=== PATIENT | female | born 1930 | race Caucasian/White ===

== ENCOUNTER 2017-10-24 11:05 | Inpatient (IN) ==
[2017-10-24] MEDS ORDERED: SALINE FLUSH 10ml SYRINGE IVF PRN (11:17)
--- NOTE | 2017-10-24 11:19 | Emergency Department Report ---
General Adult HPI - General Stated complaint: GEN Eval Time Seen by Provider: 10/24/17 11:16 Source: patient Mode of arrival: wheelchair Limitations: other (dementia) - History of Present Illness HPI narrative: 87-year-old female presents to the emergency department with a chief complaint of paranoia. This has been a gradually progressive condition over the past several weeks. Patient denies any pain or discomfort. She has no other complaints or associated symptoms. She was at her care facility when the symptoms began. Symptoms have been persistent in nature since onset. She does not note any exacerbating or remitting factors. She is accompanied by the emergency management system director from her facility who will provide history as the patient has dementia and is at baseline mental status. She denies homicidal/suicidal ideation or plan. No self injury or self-harm. - Related Data Home Medications Medication Instructions Recorded Confirmed Acetaminophen 325 - 650 mg PO Q6H PRN 10/24/17 10/24/17 Cholestyramine (with Sugar) 4 gm PO BID 10/24/17 10/24/17 [Questran Packet] Famotidine [Pepcid] 20 mg PO BID 10/24/17 10/24/17 Guaifenesin/Dm Oral Liq 5 ml PO Q4H PRN 10/24/17 10/24/17 [Robitussin Dm] Hydroxychloroquine Sulfate 400 mg PO WB 10/24/17 10/24/17 [Plaquenil] LORazepam [Ativan] 0.5 mg PO Q6H PRN 10/24/17 10/24/17 Levothyroxine Sodium 75 mg PO ACB 10/24/17 10/24/17 Meclizine [Antivert] 12.5 - 25 mg PO TID PRN 10/24/17 10/24/17 Memantine [Namenda] 10 mg PO BID 10/24/17 10/24/17 Ondansetron [Zofran Odt] 8 mg PO Q6H PRN 10/24/17 10/24/17 Triamcinolone Acetonide 1 applicatio TOP BID PRN 10/24/17 10/24/17 Ziprasidone HCl [Geodon] 20 mg PO BID 10/24/17 10/24/17 Allergies Allergy/AdvReac Type Severity Reaction Status Date / Time No Known Allergies Allergy Verified 10/24/17 11:33 Review of Systems Limitations: ROS unobtainable due to patient's medical condition Musculoskeletal: Denies: arthralgia PFSH Diarrhea, dizziness, hypothyroid, hyperlipidemia, hypocalcemia, dementia, depression, hypertension, GERD Surgical History: Denied by patient. Family History: Reviewed and Noncontributory. - Social History Smoking status: Never smoker Substance use type: does not use Alcohol intake frequency: does not drink Physical Exam - Limitations Limitations: no limitations - General General appearance: alert, in no apparent distress - Normal Exams: Head:: Normocephalic without trauma Eyes:: Pupils are PERRLA w/ EOMI, No scleral icterus, irritation, or foreign bodies noted ENMT:: No facial trauma, nasal exudates, pharyngeal erythema, or exudates are noted Dental: No fractured, loose, or missing teeth noted Neck:: Full range of motion, without adenopathy, JVD, bruits or thyromegaly Chest/Respirations:: Clear all reid, with good airflow, and symmetry bilaterally Cardiovascular:: Regular rate and rhythm, without murmur or gallop, Pulses 2+ all extremities, capillary refill, <2 seconds all extremities Abdomen:: Bowel sounds positive, soft, non-tender, non-distended, no hepatosplenomegaly, masses or bruits noted Lymphatic:: No lymphadenopathy, or lymphedema noted Musculoskeletal:: No tenderness, or deformity noted, good range of motion, all extremities Integumentary:: No rashes, hives, or bruising noted, hair and nails, without abnormality Neurological:: Patient is alert (Alert and oriented x 12 at baseline neuro status. No focal deficit. ) Psychiatric:: Patient exhibits, appropriate attention, emotion and affect Course Vital Signs Temperature 98.7 F 10/24/17 11:13 Pulse Rate 68 10/24/17 11:13 Respiratory Rate 18 10/24/17 11:13 Pulse Oximetry 94 10/24/17 11:13 Temperature 98 F 10/24/17 13:27 Pulse Rate 69 10/24/17 13:27 Respiratory Rate 18 10/24/17 13:27 Blood Pressure 160/72 H 10/24/17 13:27 Pulse Oximetry 96 10/24/17 13:27 Medical Decision Making - MDM Narrative Medical decision making narrative: Labs/imaging were discussed in detail with the patient and questions are answered. Patient is medically clear for further evaluation and treatment in a psychiatric facility. Patient was accepted degenerations by Dr. Ortega. Patient is in agreement with the current plan of management. No further orders from accepting physician is in agreement with the current plan of management. - Differential Diagnosis depression, anxiety, paranoia, metabolic disorder - Lab Data Result diagrams: 10/24/17 11:34 10/24/17 11:34 Lab Results 10/24/17 10/24/17 10/24/17 Range/Units 11:34 11:34 11:42 WBC 8.6 (4.5-11.0) T/MM3 RBC 3.68 L (4.00-5.20) M/MM3 Hgb 11.0 L (12-16) GM/DL Hct 35.4 L (36-46) % MCV 96.2 (80-100) UM3 MCH 29.9 (26-34) UUG MCHC 31.1 (31-37) GM/DL RDW Std Deviation 47.0 (36.9-50.2) FL Plt Count 306 (130-400) T/MM3 MPV 9.5 (9.4-12.4) UM3 Immature Gran % (Auto) 0.2 (0.0-0.5) % Neut % (Auto) 62.1 (33-66) % Lymph % (Auto) 24.0 (23-45) % [place] % (Auto) 8.4 (0-9.0) % Eos % (Auto) 4.5 H (0-4) % Baso % (Auto) 0.8 (0-2) % Neut # (Auto) 5.3 (1.8-7.7) T/MM3 Lymph # (Auto) 2.1 (1-4.8) T/MM3 [place] # (Auto) 0.7 (0-0.8) T/MM3 Eos # (Auto) 0.4 (0-0.5) T/MM3 Baso # (Auto) 0.1 (0-0.2) T/MM3 Abs Immat Gran (auto) 0.02 (0.00-0.03) T/MM3 Turbidity < 20 (0-20) Sodium 143 (134-144) MEQ/L Potassium 4.3 (3.6-5) MEQ/L Chloride 110 H (98-107) MEQ/L Carbon Dioxide 24 (22-30) MEQ/L Anion Gap 9 (5-15) MEQ/L BUN 20.0 H (7-17) MG/DL Creatinine 1.0 (0.7-1.2) MG/DL GFR Calculation 52 BUN/Creatinine Ratio 20 (6-26) RATIO Glucose 102 (65-110) MG/DL Calculated Osmolality 278 (261-280) MOSM/KG Calcium 9.0 (8.4-10.2) MG/DL Total Bilirubin 1.00 (0.20-1.30) MG/DL Icterus Index < 2 (0-7) AST 27 (14-36) U/L ALT 31 (9-52) U/L Alkaline Phosphatase 91 (38-126) U/L Troponin I < 0.012 (0-0.12) ng/ml Total Protein 7.5 (6.3-8.2) G/DL Albumin 4.4 (3.5-5.0) G/DL Globulin 3.1 (2.4-3.6) G/DL Albumin/Globulin Ratio 1.4 (1.1-2.2) RATIO Specimen Hemolysis < 15 (0-25) Ur Collection Type Urine, clean catch Urine Color Yellow (YELLOW) Urine Clarity Clear Urine pH 6.0 (5.0-8.0) Ur Specific [place] >=1.030 H (1.015-1.025) Urine Protein Negative (NEGATIVE) Urine Glucose (UA) Negative (NEGATIVE) Urine Ketones Negative (NEGATIVE) Urine Occult Blood Trace-lysed (NEGATIVE) Urine Nitrate Negative (NEGATIVE) Urine Bilirubin Negative (NEGATIVE) Urine Urobilinogen 0.2 (NORMAL) EU/DL Ur Leukocyte Esterase Negative (NEGATIVE) Urinalysis Comment Microscopic not ind. - Radiology Data Chest x-ray: No acute processes. - EKG Data EKG #1 EKG results narrative: Sinus Rhythm. First degree AV Block. 63 bpm. NO STEMI. Disposition Clinical Impression: Paranoia Disposition: 63 To [facility] Condition: Stable Time of Disposition: 12:15 (Admit. Dr. Ortega. ) - Seen By: physician
--- NOTE | 2017-10-24 11:41 | XRay Report ---
Indication: med. clearance PROCEDURE: XR chest 1V: Encounter: Initial Comparison: None FINDINGS: The lungs are clear. There is no abnormal airspace opacity, pleural effusion or pneumothorax identified. The heart size, pulmonary vasculature and mediastinum are within normal limits. IMPRESSION: No acute cardiopulmonary abnormality. .
--- OUTSIDE RECORDS SUMMARY | 2017-10-24 12:01 | External Medical Summary ---
:1930 Author Organization [employer] Care Team Providers Name Role Phone Jesus Suárez Provider Role Unavailable Allergies No Known Allergies Problems Problem Type Condition Code Onset Dates Condition Status Problem Hypothyroidism 244.9 Active Medications No Known Medications Results No Known Results Summary Purpose eClinical[employer] Submission
--- OUTSIDE RECORDS SUMMARY | 2017-10-24 12:01 | External Medical Summary ---
:1930 Author Organization [employer] Care Team Providers Name Role Phone Jesus Suárez Provider Role Unavailable Allergies, Adverse Reactions, Alerts Substance Reaction Event Type N.K.D.A. Info Not Available Non Drug Allergy Problems Problem Type Condition Code Onset Dates Condition Status Assessment Dementia F03.90 Active Assessment Paranoia F22 Active Problem Hypothyroidism 244.9 Active Medications Medication Code Code Instructions Start End Status Dosage System Date Date Meclizine HCl NDC 69357-9 25 MG Orally 1/2 tab 743-10 PRN Triamcinolone NDC 64142-7 0.1 % 1 application Acetonide 004-15 Externally PRN to affected area Pravastatin NDC 92266-5 40 mg as directed Sodium 771-10 Citracal + D NDC 26938-1 400 mg/500IU 1 tablet with 395-90 Orally Once a meals day Levothyroxine NDC 88421-7 50 mcg as directed Sodium 355-00 Procedures Procedure Coding System Code Date OFFICE VISITEST PT CPT-4 85388 April 24, 2016 Vital Signs Date/Time: April 24, 2016 Blood Pressure Systolic 140 mm Hg Height 62 in Weight 157.0 lbs BMI 28.71 Index Blood Pressure Diastolic 80 mm Hg Results No Known Results Summary Purpose eClinicalWorks Submission
--- OUTSIDE RECORDS SUMMARY | 2017-10-24 12:01 | External Medical Summary | Referral Summary ---
:1930 Author Organization [facility] Address [address] [place] [address] Care Team Providers Name Role Phone KaminiJesus Primary Care Physician Encounter VC Date(s): 01/22/16 - 01/22/16 [facility] [address] [place] [address] Discharge Disposition: 01-Home or Self Care Attending Physician: Raúl Mckeon MD Admitting Physician: Raúl Mckeon MD Vital Signs No data available for this section Problem List Condition Effective Dates Status Health Status Informant Acute pain(Confirmed) Resolved Allergies(Confirmed) Active Arthritis(Confirmed) Active At risk of pressure sore(Confirmed) Resolved Diverticulosis with Active perforation(Confirmed) Hyperlipidemia(Confirmed) Active Irritable bowel disease(Confirmed) Active Allergies, Adverse Reactions, Alerts No Known Medication Allergies Medications acetaminophen 650 mg, Oral, q6hr, as needed for fever or mild pain, 1-2 tabs (325mg- 650mg dose) as needed, 0 Refill(s) Start Date: 01/05/16 Status: OrderedCitracal + D 1 tabs, Oral, Daily, 0 Refill(s) Start Date: 01/05/16 Status: OrderedCommunication List obtained from [facility] Current medications document. , 0 Refill(s) Start Date: 01/05/16 Status: Orderedlevothyroxine 50 mcg (0.05 mg) oral tablet 50 mcg 1 tabs, Oral, Daily, 0 Refill(s) Start Date: 01/05/16 Status: OrderedLexapro 20 mg, Oral, Bedtime (once a day), 0 Refill(s) Start Date: 01/05/16 Status: Orderedlisinopril 10 mg oral tablet 10 mg 1 tabs, Oral, Daily, # 30 tabs, 2 Refill(s), Pharmacy: [id number], 1 tabs OralDaily Start Date: 01/08/16 Status: Orderedmeclizine 25 mg, Oral, TID, as needed for dizziness, 1/2 to 1 tab (12.5mg to 25mg dose) up to three times daily, 0 Refill(s) Start Date: 01/05/16 Status: OrderedPepcid 20 mg oral tablet 20 mg 1 tabs, Oral, BID, 0 Refill(s) Start Date: 01/08/16 Status: Orderedpravastatin 40 mg, Oral, Bedtime (once a day), 0 Refill(s) Start Date: 01/05/16 Status: Orderedtriamcinolone 0.1% topical cream 1 patricia, Topical, BID, as needed for skin irritation, 0 Refill(s) Start Date: 01/05/16 Status: Ordered Results No data available for this section Immunizations Vaccine Date Refusal Reason influenza virus vaccine, inactivated1 08/03/14 influenza virus vaccine, live 07/19/13 1Result Comment: [08/03/2014] see scanned document Procedures Procedure Date Related Diagnosis Body Site Amputation Toe (Right)1 07/08/14 R foot 2nd toe removed; hammer toe 2010 couple inches of colon removed 1979 Cholecystectomy Hysterectomy Tonsillectomy 1auto-populated from documented surgical case Social History Social History Type Response Smoking Status Never smoker Assessment and Plan No data available for this section
--- OUTSIDE RECORDS SUMMARY | 2017-10-24 12:01 | External Medical Summary ---
:1930 Author Organization [employer] Care Team Providers Name Role Phone Jesus Suárez Provider Role Unavailable Allergies, Adverse Reactions, Alerts Substance Reaction Event Type N.K.D.A. Info Not Available Non Drug Allergy Problems Problem Type Condition ICD-9 Code Onset Dates Condition Status Assessment Hypothyroidism 244.9 Active Assessment Hyperlipidemia 272.4 Active Problem Hypothyroidism 244.9 Active Medications Medication Code Code Instructions Start End Status Dosage System Date Date Escitalopram NDC 29086-6 20 mg Once a as directed Oxalate 851-01 day Pravastatin NDC 92211-7 40 mg as directed Sodium 771-10 Triamcinolone NDC 62243-9 0.1 % 1 application Acetonide 004-15 Externally PRN to affected area Levothyroxine NDC 74976-8 50 mcg as directed Sodium 355-00 Meclizine HCl NDC 59771-2 25 MG Orally 1/2 tab 743-10 PRN Citracal + D NDC 06515-5 400 mg/500IU 1 tablet with 395-90 Orally Once a meals day Procedures Procedure Coding System Code Date LIPID PROFILE CPT-4 69295 May 24, 2015 OFFICE VISITEST PT CPT-4 93253 May 24, 2015 TSH CPT-4 01324 May 24, 2015 Vital Signs Date/Time: May 24, 2015 Blood Pressure Systolic 124 mm Hg Height 62 in Weight 155.1 lbs BMI 28.37 Index Temperature 97.8 F Blood Pressure Diastolic 72 mm Hg Results No Known Results Summary Purpose eClinicalWorks Submission
--- OUTSIDE RECORDS SUMMARY | 2017-10-24 12:02 | External Medical Summary ---
:1930 Author Organization [employer] Care Team Providers Name Role Phone Jesus Suárez Provider Role Unavailable Allergies No Known Allergies Problems Problem Type Condition Code Onset Dates Condition Status Assessment Flu vaccine need V04.81 Active Problem Hypothyroidism 244.9 Active Medications No Known Medications Procedures Procedure Coding System Code Date Influenza (6 months to Adult) CPT-4 37211 Jul 04, 2015 Results No Known Results Immunizations Vaccine Administration Date Influenza (6 months to Adult) Jul 04, 2015 Summary Purpose eClinicalWorks Submission
--- OUTSIDE RECORDS SUMMARY | 2017-10-24 12:02 | External Medical Summary ---
:1930 Author Organization [employer] Care Team Providers Name Role Phone Jesus Suárez Provider Role Unavailable Allergies No Known Allergies Problems Problem Type Condition ICD-9 Code Onset Dates Condition Status Problem Hypothyroidism 244.9 Active Medications No Known Medications Results No Known Results Summary Purpose eClinicalWorks Submission
--- OUTSIDE RECORDS SUMMARY | 2017-10-24 12:02 | External Medical Summary | Referral Summary ---
:1930 Author Organization [facility] Address [address] [place] [address] Care Team Providers Name Role Phone Jesus Suárez Primary Care Physician Encounter VC Date(s): 01/05/16 - 01/08/16 [facility] [address] [place] [address] Discharge Diagnosis: Fall Discharge Diagnosis: Sacral fracture Discharge Diagnosis: Lumbar vertebral fracture Discharge Diagnosis: Vertigo Discharge Diagnosis: Intractable pain Discharge Disposition: 06-Home with Home Health Care Attending Physician: Femi Beckman DO Admitting Physician: Femi Beckman DO Vital Signs Most recent to oldest [Reference Range]: 1 Temperature Oral [35.8-37.3 degC] 36.5 degC (01/08/16 11:00 AM) Temperature Temporal Artery [36.3-37.8 degC] 36.7 degC (01/06/16 3:00 AM) Peripheral Pulse Rate [60-100 bpm] 74 bpm (01/08/16 6:01 AM) Heart Rate Monitored [60-100 bpm] 67 bpm (01/08/16 11:00 AM) Respiratory Rate [14-20 br/min] 18 br/min (01/08/16 11:00 AM) Blood Pressure [90-140/60-90 mmHg] 136/80 mmHg (01/08/16 11:52 AM) Mean Arterial Pressure, Cuff 85 mmHg (01/05/16 6:30 AM) SpO2 94 % (01/08/16 11:00 AM) Problem List Condition Effective Dates Status Health [...] Date: 01/05/16 Status: OrderedCommunication List obtained from [facility] Current medications document. , 0 Refill(s) Start Date: 01/05/16 Status: Orderedlevothyroxine 50 mcg (0.05 mg) oral tablet 50 mcg 1 tabs, Oral, Daily, 0 Refill(s) Start Date: 01/05/16 Status: OrderedLexapro 20 mg, Oral, Bedtime (once a day), 0 Refill(s) Start Date: 01/05/16 Status: Orderedlisinopril 10 mg oral tablet 10 mg 1 tabs, Oral, Daily, # 30 tabs, 2 Refill(s), Pharmacy: [id number], 1 tabs OralDaily Start Date: 01/08/16 Status: [...] Refill(s) Start Date: 01/05/16 Status: Ordered Results Hematology Most recent to oldest [Reference Range]: 1 WBC [4.8-10.8 10*3/uL] 9.4 10*3/uL (01/06/16 5:43 AM) RBC [4.00-5.20] 3.60 *LOW* (01/06/16 5:43 AM) Hgb [12.0-16.0 gm/dL] 10.9 gm/dL *LOW* (01/06/16 5:43 AM) Hct [37.0-47.0 %] 33.6 % *LOW* (01/06/16 5:43 AM) MCV [82.0-99.0 fL] 93.3 fL (01/06/16 5:43 AM) MCH [27.0-32.0 pg] 30.3 pg (01/06/16 5:43 AM) MCHC [32.0-36.0 gm/dL] 32.4 gm/dL (01/06/16 5:43 AM) RDW [11.5-14.5 %] 13.8 % (01/06/16 5:43 AM) Platelet [150-400 10*3/uL] 269 10*3/uL (01/06/16 5:43 AM) MPV [9.4-12.4 fL] 9.6 fL (01/06/16 5:43 AM) Immature Granulocytes [0.0-1.0 %] 0.4 % (01/06/16 5:43 AM) Neutrophils [51-75 %] 66 % (01/06/16 5:43 AM) Lymphocytes [20-46 %] 21 % (01/06/16 5:43 AM) Monocytes [4-11 %] 10 % (01/06/16 5:43 AM) Eosinophils [0-4 %] 2 % (01/06/16 5:43 AM) Basophils [0-2 %] 0 % (01/06/16 5:43 AM) Neutro Absolute [1.90-7.00 10*3] 6.23 10*3 (01/06/16 5:43 AM) Lymph Absolute [0.80-3.30 10*3] 1.98 10*3 (01/06/16 5:43 AM) Cache Absolute [0.30-1.00 10*3] 0.91 10*3 (01/06/16 5:43 AM) Eos Absolute [0.00-0.50 10*3] 0.19 10*3 (01/06/16 5:43 AM) Baso Absolute [0.00-0.20 10*3] 0.04 10*3 (01/06/16 5:43 AM) Coagulation Most recent to oldest [Reference Range]: 1 INR [0.9-1.2] 0.9 (01/05/16 1:19 PM) PTT [25.0-35.0 seconds] 28.8 seconds (01/05/16 1:19 PM) Chemistry Most recent to oldest [Reference Range]: 1 Sodium Lvl [136-144 mEq/L] 138 mEq/L (01/06/16 5:43 AM) Potassium Lvl [3.6-5.1 mEq/L] 4.0 mEq/L (01/06/16 5:43 AM) Chloride [99-109 mEq/L] 106 mEq/L (01/06/16 5:43 AM) CO2 [22-32 mEq/L] 26 mEq/L (01/06/16 5:43 AM) AGAP [3-20] 6 (01/06/16 5:43 AM) BUN [4-20 mg/dL] 17 mg/dL (01/06/16 5:43 AM) Glucose Lvl [70-100 mg/dL] 114 mg/dL *HI* (01/06/16 5:43 AM) Creatinine Lvl [0.44-1.03 mg/dL] 0.76 mg/dL (01/06/16 5:43 AM) eGFR [>60] >60 1 (01/06/16 5:43 AM) Calcium Lvl [8.6-10.0 mg/dL] 8.4 mg/dL *LOW* (01/06/16 5:43 AM) Albumin Lvl [3.5-4.8 gm/dL] 3.5 gm/dL (01/06/16 5:43 AM) Total Protein [6.1-7.9 gm/dL] 6.4 gm/dL (01/06/16 5:43 AM) Globulin [1.9-4.3 gm/dL] 2.9 gm/dL (01/06/16 5:43 AM) ALT [14-54 U/L] 18 U/L (01/06/16 5:43 AM) AST [15-41 U/L] 29 U/L (01/06/16 5:43 AM) Alk Phos [26-104 U/L] 75 U/L (01/06/16 5:43 AM) Bili Total [0.2-1.2 mg/dL] 1.6 mg/dL 2 *HI* (01/06/16 5:43 AM) Magnesium Lvl [1.8-2.5 mg/dL] 2.1 mg/dL (01/06/16 5:43 AM) 1Result Comment: Multiply eGFR results by 1.21 for race.2Result Comment: Naproxen, specifically the metabolite O-desmethylnaproxen, may cause spurious elevation in Total Bilirubin levels.Urinalysis Most recent to oldest [Reference Range]: 1 UA Color Lt Yellow (01/05/16 8:14 PM) UA Appear Clear (01/05/16 8:14 PM) UA pH [5.0-8.0] 6.5 (01/05/16 8:14 PM) UA Leuk Est [Negative] Negative (01/05/16 8:14 PM) UA Nitrite [Negative] Negative (01/05/16 8:14 PM) UA Protein [Negative] Negative (01/05/16 8:14 PM) UA Glucose [Negative] Negative (01/05/16 8:14 PM) UA Ketones [Negative] Negative (01/05/16 8:14 PM) UA Urobilinogen [<1.0] Negative (01/05/16 8:14 PM) UA Bili [Negative] Negative (01/05/16 8:14 PM) UA Blood [Negative] Trace *ABN* (01/05/16 8:14 PM) UA Spec Grav [1.003-1.030] 1.019 (01/05/16 8:14 PM) Type Clean Catch (01/05/16 8:14 PM) UA WBC [0-4] 0-2 (01/05/16 6:27 AM) UA RBC [0-2] 0-2 (01/05/16 8:14 PM) Epithelial Cells 0-2 (01/05/16 8:14 PM) Crystals Amorphous (01/05/16 8:14 PM) UA Mucous Present (01/05/16 8:14 PM) Immunizations Vaccine Date Refusal Reason influenza virus vaccine, inactivated1 08/03/14 influenza virus vaccine, live 07/19/13 1Result Comment: [08/03/2014] see scanned document Procedures Procedure Date Related Diagnosis Body Site Percutaneous vertebral augmentation, including 01/05/16 cavity creation (fracture reduction and bone biopsy included when performed) using mechanical device (eg, kyphoplasty), 1 vertebral body, unilateral or bilateral cannulation, inclusive of all imaging guidance Percutaneous vertebral augmentation, including 01/05/16 cavity creation (fracture reduction and bone biopsy included when performed) using mechanical device (eg, kyphoplasty), 1 vertebral body, unilateral or bilateral cannulation, inclusive of all imaging guidance Percutaneous vertebral augmentation, including 01/05/16 cavity creation (fracture reduction and bone biopsy included when performed) using mechanical device (eg, kyphoplasty), 1 vertebral body, unilateral or bilateral cannulation, inclusive of all imaging guidance Percutaneous vertebral augmentation, including 01/05/16 cavity creation (fracture reduction and bone biopsy included when performed) using mechanical device (eg, kyphoplasty), 1 vertebral body, unilateral or bilateral cannulation, inclusive of all imaging guidance Amputation Toe (Right)1 07/08/14 R foot 2nd toe removed; hammer toe 2010 couple inches of colon removed 1979 Cholecystectomy Hysterectomy Tonsillectomy 1auto-populated from documented surgical case Social History Social History Type Response Smoking Status Never smoker Assessment and Plan No data available for this section
--- OUTSIDE RECORDS SUMMARY | 2017-10-24 12:02 | External Medical Summary | Referral Summary ---
:1930 Author Organization [facility] Address [address] [place] [address] Care Team Providers Name Role Phone Jesus Suárez Primary Care Physician Encounter VC Date(s): 01/25/16 - 01/25/16 [facility] [address] [place] [address] [place] Discharge Diagnosis: Medication side effect Discharge Diagnosis: Gastroenteritis Discharge Disposition: 01-Home or Self Care Attending Physician: Ochoa Marie MD Admitting Physician: Ochoa Marie MD Vital Signs Most recent to oldest [Reference Range]: 1 Temperature Oral [35.8-37.3 degC] 36.6 degC (01/25/16 3:41 PM) Peripheral Pulse Rate [60-100 bpm] 64 bpm (01/25/16 5:45 PM) Respiratory Rate [14-20 br/min] 18 br/min (01/25/16 5:45 PM) Blood Pressure [90-140/60-90 mmHg] 156/74 mmHg *HI* (01/25/16 5:45 PM) SpO2 97 % (01/25/16 5:45 PM) Problem List Condition Effective Dates Status Health Status Informant Acute pain(Confirmed) Resolved Allergies(Confirmed) Active Arthritis(Confirmed) Active At risk of pressure sore(Confirmed) Resolved Dementia(Confirmed) Active patient Diverticulosis with Active perforation(Confirmed) Hyperlipidemia(Confirmed) Active Irritable bowel disease(Confirmed) Active Allergies, Adverse Reactions, Alerts No Known Medication Allergies Medications acetaminophen 650 mg, Oral, q6hr, as needed for fever or mild pain, 1-2 tabs (325mg- 650mg dose) as needed, 0 Refill(s) Start Date: 01/05/16 Status: OrderedAricept Oral, Bedtime (once a day), 0 Refill(s) Start Date: 01/25/16 Status: OrderedCitracal + D 1 tabs, Oral, Daily, 0 Refill(s) Start Date: 01/05/16 Status: OrderedCommunication List obtained from [facility] Current medications document. , 0 Refill(s) Start Date: 01/05/16 Status: Orderedlevothyroxine 50 mcg (0.05 mg) oral tablet 50 mcg 1 tabs, Oral, Daily, 0 Refill(s) Start Date: 01/05/16 Status: Orderedlisinopril 10 mg oral tablet 10 mg 1 tabs, Oral, Daily, # 30 tabs, 2 Refill(s), Pharmacy: [facility] [id number], 1 tabs OralDaily Start Date: 01/08/16 Status: [...] oldest [Reference Range]: 1 WBC [4.8-10.8 10*3/uL] 10.1 10*3/uL (01/25/16 3:55 PM) RBC [4.00-5.20] 4.17 (01/25/16 3:55 PM) Hgb [12.0-16.0 gm/dL] 12.7 gm/dL (01/25/16 3:55 PM) Hct [37.0-47.0 %] 38.1 % (01/25/16 3:55 PM) MCV [82.0-99.0 fL] 91.4 fL (01/25/16 3:55 PM) MCH [27.0-32.0 pg] 30.5 pg (01/25/16 3:55 PM) MCHC [32.0-36.0 gm/dL] 33.3 gm/dL (01/25/16 3:55 PM) RDW [11.5-14.5 %] 13.5 % (01/25/16 3:55 PM) Platelet [150-400 10*3/uL] 402 10*3/uL *HI* (01/25/16 3:55 PM) MPV [9.4-12.4 fL] 9.5 fL (01/25/16 3:55 PM) Chemistry Most recent to oldest [Reference Range]: 1 Sodium Lvl [136-144 mEq/L] 137 mEq/L (01/25/16 3:56 PM) Potassium Lvl [3.6-5.1 mEq/L] 4.1 mEq/L (01/25/16 3:56 PM) Chloride [99-109 mEq/L] 106 mEq/L (01/25/16 3:56 PM) CO2 [22-32 mEq/L] 24 mEq/L (01/25/16 3:56 PM) AGAP [3-20] 7 (01/25/16 3:56 PM) BUN [4-20 mg/dL] 21 mg/dL *HI* (01/25/16 3:56 PM) Glucose Lvl [70-100 mg/dL] 103 mg/dL *HI* (01/25/16 3:56 PM) Creatinine Lvl [0.44-1.03 mg/dL] 0.86 mg/dL (01/25/16 3:56 PM) eGFR [>60] >60 1 (01/25/16 3:56 PM) Calcium Lvl [8.6-10.0 mg/dL] 9.0 mg/dL (01/25/16 3:56 PM) Albumin Lvl [3.5-4.8 gm/dL] 4.3 gm/dL (01/25/16 3:56 PM) Total Protein [6.1-7.9 gm/dL] 7.6 gm/dL (01/25/16 3:56 PM) Globulin [1.9-4.3 gm/dL] 3.3 gm/dL (01/25/16 3:56 PM) ALT [14-54 U/L] 18 U/L (01/25/16 3:56 PM) AST [15-41 U/L] 27 U/L (01/25/16 3:56 PM) Alk Phos [26-104 U/L] 127 U/L *HI* (01/25/16 3:56 PM) Bili Total [0.2-1.2 mg/dL] 0.8 mg/dL 2 (01/25/16 3:56 PM) Creatinine Venous [0.4-1.0 mg/dL] 0.8 mg/dL (01/25/16 4:04 PM) 1Result Comment: Multiply eGFR results by 1.21 for race.2Result Comment: Naproxen, specifically the metabolite O-desmethylnaproxen, may cause spurious elevation in Total Bilirubin levels.Urinalysis Most recent to oldest [Reference Range]: 1 UA Color Yellow (01/25/16 3:55 PM) UA Appear Clear (01/25/16 3:55 PM) UA pH [5.0-8.0] 5.0 (01/25/16 3:55 PM) UA Leuk Est [Negative] Pos 1+ *ABN* (01/25/16 3:55 PM) UA Nitrite [Negative] Negative (01/25/16 3:55 PM) UA Protein [Negative] Negative (01/25/16 3:55 PM) UA Glucose [Negative] Negative (01/25/16 3:55 PM) UA Ketones [Negative] Negative (01/25/16 3:55 PM) UA Urobilinogen [<1.0] Negative (01/25/16 3:55 PM) UA Bili [Negative] Negative (01/25/16 3:55 PM) UA Blood [Negative] Trace *ABN* (01/25/16 3:55 PM) UA Spec Grav [1.003-1.030] 1.026 (01/25/16 3:55 PM) Type Clean Catch (01/25/16 3:55 PM) UA WBC [0-4] 5-10 *ABN* (01/25/16 3:55 PM) UA RBC [0-2] 0-2 (01/25/16 3:55 PM) Epithelial Cells 2-5 (01/25/16 3:55 PM) UA Bacteria Occasional *ABN* (01/25/16 3:55 PM) UA Mucous Present (01/25/16 3:55 PM) Immunizations Vaccine Date Refusal Reason influenza [...]
--- OUTSIDE RECORDS SUMMARY | 2017-10-24 12:02 | External Medical Summary ---
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 939777680 recurrent major depressive disorder Problem Vascular dementia F01.50 Active 970847708 without behavioral disturbance Problem Irritable bowel K58.0 Active 288469972 syndrome with diarrhea Problem Loss of height R29.890 Active 14282457 Problem Long-term use of Z79.899 Active 135634041 high-risk medication Problem Essential I10 Active 83828348 hypertension Problem Diarrhea due to drug K52.1 Active 793424034 Problem Adverse effect of T46.4X5A Active 837099540 angiotensin-converti ng-enzyme inhibitors, initial encounter Problem Cough R05 Active 580167287 Problem 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 Problem Gastroesophageal K21.9 Active 995305559 reflux disease without esophagitis Problem Dermatitis L30.9 Active 48929009 Problem Dementia in other F02.80 Active 15619910 diseases classified elsewhere without behavioral disturbance Problem Functional diarrhea K59.1 Active 02806914 Problem Acquired E03.9 Active 544525589 hypothyroidism Problem Generalized anxiety F41.1 Active 07046315 disorder ALLERGIES No Information SOCIAL HISTORY Never Assessed PLAN OF CARE VITAL SIGNS MEDICATIONS Unknown Medications RESULTS No Results PROCEDURES No Known procedures IMMUNIZATIONS No Known Immunizations MEDICAL (GENERAL) HISTORY Type Description Date Medical History essential hypertension Medical History senile dementia Medical History IBS with diarrhea Medical History major depressive disorder Medical History generalized anxiety disorder Medical History GERD Medical History acquired hypothyroidism
--- OUTSIDE RECORDS SUMMARY | 2017-10-24 12:02 | External Medical Summary ---
:1930 Demographics Phone Unavailable Preferred Language Unknown Marital Status Unknown Oriental Orthodox Affiliation Unknown Race Unknown Ethnic Group Unknown Author Organization [facility] Spec Address [address] [place] [address] Care Team Providers Name Role Phone Dago Scott Unavailable Unavailable PROBLEMS Type Condition ICD9-CM [id number] Onset Condition SNOMED Code Code Code Dates Status Problem Functional diarrhea K59.1 Active 48136549 Problem Moderate episode of F33.1 Active 507693934 recurrent major depressive disorder Problem Generalized anxiety F41.1 Active 70605026 disorder Problem Adverse effect of T46.4X5A Active 301822590 angiotensin-converting- enzyme inhibitors, initial encounter Problem Cough R05 Active 530048078 Problem Vascular dementia F01.50 Active 042853847 without behavioral disturbance Problem Irritable bowel K58.0 Active 379345486 syndrome with diarrhea Problem Essential hypertension I10 Active 31270644 Problem Diarrhea due to drug K52.1 Active 616754741 Assessment Hypercholesterolemia E78.00 13 Jan, Active 73155972 2017 Problem Dementia in other F02.80 Active 14260501 diseases classified elsewhere without behavioral disturbance Problem Acquired hypothyroidism E03.9 Active 623293997 Assessment Adverse effect of T46.4X5A Jan, Active 768561455 angiotensin-converting- 2017 enzyme inhibitors, initial encounter Problem Gastroesophageal reflux K21.9 Active 171801581 disease without esophagitis Problem Alzheimers disease with G30.1 Active 44487065 late onset Problem Dermatitis L30.9 Active 78139521 ALLERGIES Substance Reaction Event Type Date Status N.K.D.A. Unknown Non Drug Allergy Jan, Unknown SOCIAL HISTORY No smoking Hx information available PLAN OF CARE VITAL SIGNS MEDICATIONS Medication Instructions Dosage Frequency Start End Duration Status Date Date Lexapro 20 mg orally once a 1 tab(s) 24h Active day hydroxychloroquine orally once a 1 tab(s) 24h Active 200 mg day Namenda 10 mg orally 2 times 1 tab(s) 12h Active a day triamcinolone topical applied 1 patricia 8h Active 0.1% topically 3 times a day famotidine 20 mg orally 2 times 1 tab(s) 12h Active a day Dicyclomide Active Hydrochloride (obsolete), 100 g acetaminophen 325 mg orally every 4 2 tab(s) 4h Active hours levothyroxine 75 mcg orally once a 1 tab(s) 24h Active (0.075 mg) day pravastatin 20 mg orally once a 1 tab(s) Active day (at bedtime) RESULTS No Results PROCEDURES Procedure Date Ordered Related Diagnosis Body Site Subseq [facility] January 16, 2017 IMMUNIZATIONS No Known Immunizations
--- OUTSIDE RECORDS SUMMARY | 2017-10-24 12:02 | External Medical Summary ---
:1930 Author Organization [facility] Address [address] [place] [address] Care Team Providers Name Role Phone February, Unavailable Unavailable PROBLEMS Type Condition ICD9-CM Code [id number] Code Onset Condition SNOMED Code Dates Status Problem Hypothyroidism 244.9 Active 70343910 ALLERGIES Unknown Allergies SOCIAL HISTORY No smoking Hx information available PLAN OF CARE VITAL SIGNS MEDICATIONS Unknown Medications RESULTS No Results PROCEDURES No Known procedures IMMUNIZATIONS No Known Immunizations
--- OUTSIDE RECORDS SUMMARY | 2017-10-24 12:02 | External Medical Summary ---
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 550545368 recurrent major depressive disorder Problem Vascular dementia F01.50 Active 628182797 without behavioral disturbance Problem Irritable bowel K58.0 Active 067433969 syndrome with diarrhea Problem Loss of height R29.890 Active 70397049 Problem Long-term use of Z79.899 Active 939135708 high-risk medication Problem Essential I10 Active 85317133 hypertension Problem Diarrhea due to drug K52.1 Active 837668315 Problem Adverse effect of T46.4X5A Active 964657798 angiotensin-converti ng-enzyme inhibitors, initial encounter Problem Cough R05 Active 554280464 Problem 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
--- OUTSIDE RECORDS SUMMARY | 2017-10-24 12:02 | External Medical Summary ---
:1930 Author Organization [facility] Spec Address [address] [place] [address] Care Team Providers Name Role Phone Dago Scott Unavailable Unavailable PROBLEMS Type Condition ICD9-CM [id number] Onset Condition SNOMED Code Code Code Dates Status Problem Moderate episode of F33.1 Active 018989604 recurrent major depressive disorder Problem Vascular dementia F01.50 Active 292688531 without behavioral disturbance Problem Irritable bowel K58.0 Active 505550746 syndrome with diarrhea Problem Acute cystitis N30.00 Active 75864659 without hematuria Problem Seborrheic keratosis L82.1 Active 559011688 Problem Essential I10 Active 60895075 hypertension Problem Diarrhea due to drug K52.1 Active 247074693 Problem Adverse effect of T46.4X5A Active 659089080 angiotensin-converti ng-enzyme inhibitors, initial encounter Problem Cough R05 Active 492201623 Problem 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 03186167 with late onset Problem Gastroesophageal K21.9 Active 602474681 reflux disease without esophagitis Problem Dermatitis L30.9 Active 01512971 Problem Dementia in other F02.80 Active 51226565 diseases classified elsewhere without behavioral disturbance Problem Functional diarrhea K59.1 Active 41465808 Problem Acquired E03.9 Active 528878951 hypothyroidism Problem Generalized anxiety F41.1 Active 43990607 disorder ALLERGIES No Known Allergies SOCIAL HISTORY Never Assessed PLAN OF CARE VITAL SIGNS Temperature 97.5 degrees Fahrenheit 2017-05-15 Weight 160.4 lbs 2017-05-15 Height 60 in 2017-05-15 BMI 31.32 kg/m2 2017-05-15 Heart Rate 16 /min 2017-05-15 Oximetry 95 2017-05-15 Blood pressure systolic 129 mm Hg 2017-05-15 Blood pressure diastolic 69 mm Hg 2017-05-15 MEDICATIONS Medication Instructions Dosage Frequency Start End Duration Status Date Date hydroxychloroquine orally once a 1 tab(s) 24h Active 200 mg day Namenda 10 mg orally 2 times 1 tab(s) 12h Active a day Lexapro 20 mg orally once a 1 tab(s) 24h Active day acetaminophen 325 mg orally every 4 2 tab(s) 4h Active hours famotidine 20 mg orally 2 times 1 tab(s) 12h Active a day levothyroxine 75 mcg orally once a 1 tab(s) 24h Active (0.075 mg) day Dicyclomide Active Hydrochloride (obsolete) pravastatin 20 mg orally once a 1 tab(s) Active day (at bedtime) triamcinolone topical applied 1 patricia 8h Active 0.1% topically 3 times a day RESULTS No Results PROCEDURES No Known procedures IMMUNIZATIONS No Known Immunizations MEDICAL (GENERAL) HISTORY Type Description Date Medical History essential hypertension Medical History senile dementia Medical History IBS with diarrhea Medical History major depressive disorder Medical History generalized anxiety disorder Medical History GERD Medical History acquired hypothyroidism
--- OUTSIDE RECORDS SUMMARY | 2017-10-24 12:02 | External Medical Summary ---
:1930 Demographics Phone Unavailable Preferred Language Unknown Marital Status Unknown Sabianist Affiliation Unknown Race Unknown Ethnic Group Unknown Author Organization [facility] Spec Address [address] [place] [address] Care Team Providers Name Role Phone Dago Scott Unavailable Unavailable PROBLEMS Type Condition ICD9-CM [id number] Onset Condition SNOMED Code Code Code Dates Status Problem Functional diarrhea K59.1 Active 20029338 Problem Moderate episode of F33.1 Active 733860988 recurrent major depressive disorder Problem Generalized anxiety F41.1 Active 20908195 disorder Problem Adverse effect of T46.4X5A Active 216034674 angiotensin-converti ng-enzyme inhibitors, initial encounter Problem Cough R05 Active 715460538 Problem Vascular dementia F01.50 Active 079720067 without behavioral disturbance Problem Irritable bowel K58.0 Active 968160825 syndrome with diarrhea Problem Essential I10 Active 51465767 hypertension Problem Diarrhea due to drug K52.1 Active 915314898 Problem Dementia in other F02.80 Active 89347556 diseases classified elsewhere without behavioral disturbance Problem Acquired E03.9 Active 182213788 hypothyroidism Assessment Adverse effect of T46.4X5A 30 Dec, Active 993885989 angiotensin-converti 2017 ng-enzyme inhibitors, initial encounter Problem Gastroesophageal K21.9 Active 573947730 reflux disease without esophagitis 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 January 02, 2017 IMMUNIZATIONS No Known Immunizations
--- OUTSIDE RECORDS SUMMARY | 2017-10-24 12:02 | External Medical Summary ---
:1930 Demographics Phone Unavailable Preferred Language Unknown Marital Status Unknown Hinduism Affiliation Unknown Race Unknown Ethnic Group Unknown Author Organization [facility] Spec Address [address] [place] [address] Care Team Providers Name Role Phone Dago Scott Unavailable Unavailable PROBLEMS Type Condition ICD9-CM [id number] Onset Condition SNOMED Code Code Code Dates Status Problem Dementia in other F02.80 Active 63120817 diseases classified elsewhere without behavioral disturbance Problem Gastroesophageal reflux K21.9 Active 349545315 disease without esophagitis Problem Acquired hypothyroidism E03.9 Active 929314790 Assessment Essential hypertension I10 Dec, Active 79111016 2017 Assessment Hypercholesterolemia E78.00 Dec, Active 88670584 2017 Assessment Vascular dementia F01.50 Dec, Active 194401881 without behavioral 2017 disturbance Problem Alzheimers disease with G30.1 Active 06322614 late onset Problem Vascular dementia F01.50 Active 044098468 without behavioral disturbance Problem Irritable bowel K58.0 Active 550422398 syndrome with diarrhea Problem Functional diarrhea K59.1 Active 16939318 Problem Dermatitis L30.9 Active 69141015 Problem Moderate episode of F33.1 Active 601485613 recurrent major depressive disorder Problem Generalized anxiety F41.1 Active 44420544 disorder ALLERGIES Substance Reaction Event Type Date Status N.K.D.A. Unknown Non Drug Allergy Dec, Unknown SOCIAL HISTORY No smoking Hx information available PLAN OF CARE VITAL SIGNS MEDICATIONS Medication Instructions Dosage Frequency Start End Duration Status Date Date Dicyclomide Active Hydrochloride (obsolete), 100 g levothyroxine 75 mcg orally once a 1 tab(s) 24h Active (0.075 mg) day pravastatin 20 mg orally once a 1 tab(s) Active day (at bedtime) triamcinolone topical applied 1 patricia 8h Active 0.1% topically 3 times a day Namenda 10 mg orally 2 times 1 tab(s) 12h Active a day lisinopril 10 mg orally once a 1 tab(s) 24h Active day Lexapro 20 mg orally once a 1 tab(s) 24h Active day hydroxychloroquine orally once a 1 tab(s) 24h Active 200 mg day acetaminophen 325 mg orally every 4 2 tab(s) 4h Active hours famotidine 20 mg orally 2 times 1 tab(s) 12h Active a day RESULTS No Results PROCEDURES Procedure Date Ordered Related Diagnosis Body Site SNF Initial Level 2 December 26, 2016 IMMUNIZATIONS No Known Immunizations
--- OUTSIDE RECORDS SUMMARY | 2017-10-24 12:02 | External Medical Summary ---
:1930 Author Organization [employer] Care Team Providers Name Role Phone Jesus Suárez Provider Role Unavailable Allergies No Known Allergies Problems Problem Type Condition Code Onset Dates Condition Status Problem Hypothyroidism 244.9 Active Medications Medication Code System Code Instructions Start Date End Date Status Dosage Aricept [facility] 91868-957 5 MG Orally Once January 18, 1 tablet at 5-90 a day 2016 bedtime Results No Known Results Summary Purpose [employer] Submission
--- OUTSIDE RECORDS SUMMARY | 2017-10-24 12:03 | External Medical Summary | Continuity of Care Document ---
:1930 Author Organization [facility] Allergies Active Description Code Type Severity Reaction Onset Reported/ Identified Relationship Clinical to Patient Status Yes NKDA N/A N/A Yes No Known No Drug Unknown N/A 12/11/2015 Allergies Known Aller Aller gy gies Medications Medication Packaging Start Date Stop Date Route Dosage Sig 11/07/2014 ORAL [id number] daily 02/06/2015 ORAL [id number] daily 02/09/2015 ORAL [id number] 05/09/2015 ORAL [id number] daily 05/12/2015 ORAL [id number] daily Problems There is no data. Procedures There is no data. Results Test Result Range CBC W/DIFF - 12/11/15 23:59 BASOPHIL # 0.1 k/cumm 0.0-0.2 BASOPHIL % 1 % 0-1 COMMENT REVIEWED EOSINOPHIL # 0.3 k/cumm 0.1-0.5 EOSINOPHIL % 4 % 2-4 GRANULOCYTE # 5.5 k/cumm 2.0-9.0 GRANULOCYTE % 62 % 50-75 LYMPHOCYTE # 2.1 k/cumm 1.0-4.0 LYMPHOCYTE % 23 % 20-30 MEAN CELL HGB 30.5 pg 27.0-33.0 MEAN CELL HGB CONCENTRATION 32.8 g/dL 32.0-37.0 MEAN CELL VOLUME 93.0 fl 80.0-100.0 MONOCYTE # 0.9 k/cumm 0.1-1.0 MONOCYTE % 10 % 4-6 RED BLOOD CELL 3.84 m/cumm 4.00-6.00 RED CELL DISTRIBUTION WIDTH 13.9 % 11.0-15.6 WHITE BLOOD CELL 8.9 k/cumm 5.0-10.0 HEMOGLOBIN 11.7 gm/dL 12.0-16.0 HEMATOCRIT 35.7 % 37.0-47.0 PLATELET COUNT 268 k/cumm 150-450 METABOLIC PANEL, COMPREHN - 12/11/15 23:59 POTASSIUM 3.7 mmol/L 3.5-5.3 ANION GAP 9 mmol/L 5-15 EST CrCl (CG) 45 mL/min > 59 GLUCOSE 121 mg/dL 70-99 CALCIUM 8.2 mg/dL 8.5-10.1 BLOOD UREA NITROGEN 32 mg/dL 7-20 CREATININE 0.8 mg/dL 0.6-1.0 SODIUM 139 mmol/L 135-148 CHLORIDE 107 mmol/L 98-110 AST/SGOT 26 Units/L 10-37 ALT/SGPT 23 Units/L < 66 CARBON DIOXIDE 23 mmol/L 21-32 TOTAL PROTEIN 7.4 gm/dL 6.4-8.2 ALBUMIN 3.9 gm/dL 3.4-5.0 BILI TOTAL 0.8 mg/dL 0.0-1.0 ALKALINE PHOSPHATASE TOTAL 93 IU/L 45-117 TROPONIN I BEDSIDE - 12/12/15 00:07 METHOD Bedside TROPONIN I < 0.04 ng/mL < 0.11 Encounters ACCT No. Visit Discharge Status Pt. Type Provider Facility Loc./Unit Complaint Date/Time [id number] 12/14/2013 12/14/2013 [facility] 14:08:00 23:59:59 nt [id number] 10/29/2013 10/29/2013 [facility] 08:48:00 23:59:59 nt [id number] 10/14/2013 10/14/2013 [facility] 09:56:00 23:59:59 nt [id number] 09/06/2013 09/06/2013 [facility] 13:35:00 23:59:59 nt [id number] 07/28/2013 07/28/2013 C[facility] 15:35:00 23:59:59 nt [id number] 05/27/2016 05/27/2016 [facility] [id number] 16:09:59 23:59:59 nt 0959 [id number] 05/27/2016 05/27/2016 [facility] [id number] 20:22:21 20:22:21 nt 2221 [id number] 05/27/2016 05/27/2016 [facility] [id number] 19:54:15 19:54:15 nt 5415 [id number] 05/27/2016 05/27/2016 [facility] [id number] 19:46:00 19:46:00 nt 4600 [id number] 05/27/2016 05/27/2016 [facility] [id number] 19:43:51 19:43:51 nt 4351 [id number] 05/27/2016 05/27/2016 [facility] [id number] 19:43:50 19:43:50 nt 4350 [id number] 05/27/2016 05/27/2016 [facility] [id number] 19:43:04 19:43:05 nt 4304 [id number] 05/27/2016 05/27/2016 [facility] [id number] 19:42:58 19:42:58 nt 4258 [id number] 05/27/2016 05/27/2016 ACT [facility] [id number] 19:42:57 19:42:57 nt 4257 [id number] 05/12/2015 05/12/2015 DIS Outpatie [id number] 11:36:04 11:36:04 nt 3604 [id number] 05/11/2015 05/11/2015 CLS [facility] [id number] 14:19:50 23:59:59 nt 1950 [id number] 05/11/2015 05/11/2015 C[facility] [id number] 13:36:40 23:59:59 nt 3640 [id number] 05/11/2015 05/11/2015 C[facility] [id number] 13:36:30 23:59:59 nt 3630 [id number] 05/11/2015 05/11/2015 DIS [facility]pat[facility] [id number] 16:46:28 16:46:28 nt 4628 [id number] 05/11/2015 05/11/2015 DIS Outpat[facility] [id number] 14:47:45 14:47:45 nt 4745 [id number] 05/11/2015 05/11/2015 DIS Outpat[facility] [id number] 13:38:50 13:38:51 nt 3850 [id number] 05/11/2015 05/11/2015 DIS Outpatie [id number] 13:36:38 13:36:38 nt 3638 [id number] 05/08/2015 05/08/2015 CLS [facility] [id number] 14:59:28 23:59:59 nt 5928 [id number] 05/08/2015 05/08/2015 CLS Out[facility] [id number] 14:59:24 23:59:59 nt 5924 [id number] 02/09/2015 02/09/2015 DIS Outpatie [id number] 15:59:17 15:59:17 nt 5917 [id number] 02/07/2015 02/07/2015 CLS Outpat[facility] [id number] 09:49:19 23:59:59 nt 4919 [id number] 02/06/2015 02/06/2015 CLS [facility] [id number] 14:58:22 23:59:59 nt 5822 [id number] 02/06/2015 02/06/2015 DIS Outpatie [id number] 14:55:58 14:56:00 nt 5558 [id number] 02/06/2015 02/06/2015 DIS Outpatie [id number] 14:31:50 14:31:50 nt 3150 [id number] 02/06/2015 02/06/2015 DIS Outpatie [id number] 14:30:49 14:30:50 nt 3049 [id number] 02/06/2015 02/06/2015 DIS Outpatie [id number] 13:42:58 13:42:58 nt 4258 [id number] 02/06/2015 02/06/2015 DIS Outpatie [id number] 13:41:54 13:41:54 nt 4154 [id number] 11/21/2014 11/21/2014 DIS Outpatie [id number] 08:11:50 08:11:51 nt 1150 [id number] 11/21/2014 11/21/2014 DIS Outpatie [id number] 08:11:22 08:11:24 nt 1122 [id number] 11/21/2014 11/21/2014 DIS Outpatie [id number] 08:05:25 08:05:25 nt 0525 [id number] 11/21/2014 11/21/2014 DIS Outpatie [id number] 08:05:23 08:05:23 nt 0523 [id number] 11/21/2014 11/21/2014 DIS Outpatie [id number] 07:59:26 07:59:27 nt 5926 [id number] 11/21/2014 11/21/2014 DIS Outpatie [id number] 07:59:08 07:59:09 nt 5908 [id number] 11/18/2014 11/18/2014 CLS Out[facility] [id number] 15:36:58 23:59:59 nt 3658 [id number] 11/08/2014 11/08/2014 DIS Outpatie [id number] 10:03:08 10:03:09 nt 0308 [id number] 09/26/2014 09/26/2014 CLS Outpatie [id number] 12:36:14 23:59:59 nt 3614 [id number] 09/26/2014 09/26/2014 CLS Outpatie [id number] 12:36:13 23:59:59 nt 3613 [id number] 09/26/2014 09/26/2014 DIS Outpatie [id number] 12:36:36 12:36:36 nt 3636 [id number] 09/26/2014 09/26/2014 DIS Outpatie [id number] 12:36:34 12:36:34 nt 3634 [id number] 09/07/2014 09/07/2014 DIS Outpatie [id number] 08:04:36 08:04:36 nt 0436 [id number] 09/07/2014 09/07/2014 DIS Outpatie [id number] 08:04:35 08:04:35 nt 0435 [id number] 09/07/2014 09/07/2014 DIS Outpatie [id number] 08:04:23 08:04:23 nt 0423 [id number] 05/27/2016 Document [id number] 16:08:26 Registra 0826 tion [id number] 05/27/2016 Document [id number] 16:05:00 Registra 05 tion [id number] 05/12/2015 Document [id number] 12:40:24 Registra tion [id number] 05/12/2015 Document [id number] 12:40:11 Registra tion [id number] 05/12/2015 Document [id number] 12:38:00 Registra 38 tion [id number] 05/12/2015 Document [id number] 09:48:45 Registra 4845 tion [id number] 05/12/2015 Document [id number] 08:58:10 Registra 5810 tion [id number] 05/12/2015 Document [id number] 08:05:25 Registra 0525 tion [id number] 05/10/2015 Document [id number] 06:49:02 Registra tion [id number] 05/10/2015 Document [id number] 06:49:00 Registra tion [id number] 05/10/2015 Document [id number] 06:48:57 Registra tion [id number] 05/10/2015 Document [id number] 06:48:54 Registra tion [id number] 05/10/2015 Document [id number] 06:48:51 Registra tion [id number] 05/10/2015 Document [id number] 06:48:49 Registra tion [id number] 05/10/2015 Document [id number] 06:48:46 Registra tion [id number] 05/10/2015 Document [id number] 06:48:43 Registra tion [id number] 05/10/2015 Document [id number] 06:48:41 Registra tion [id number] 02/10/2015 Document [id number] 06:52:26 Registra tion [id number] 02/10/2015 Document [id number] 06:52:24 Registra tion [id number] 02/10/2015 Document [id number] 06:52:21 Registra tion [id number] 02/10/2015 Document [id number] 06:52:18 Registra tion [id number] 02/10/2015 Document [id number] 06:52:16 Registra tion [id number] 02/06/2015 Document [id number] 17:00:23 Registra 0023 tion [id number] 02/06/2015 Document [id number] 16:49:02 Registra 4902 tion [id number] 02/06/2015 Document [id number] 14:24:05 Registra tion [id number] 02/06/2015 Document [id number] 14:24:02 Registra tion [id number] 02/06/2015 Document [id number] 14:23:58 Registra tion [id number] 02/06/2015 Document [id number] 14:23:55 Registra tion [id number] 02/06/2015 Document [id number] 14:23:52 Registra tion [id number] 02/06/2015 Document [id number] 14:23:50 Registra tion [id number] 02/06/2015 Document [id number] 14:23:47 Registra tion [id number] 02/06/2015 Document [id number] 14:23:37 Registra tion [id number] 02/06/2015 Document [id number] 13:48:00 Registra 48 tion [id number] 12/11/2015 12/12/2015 DIS Emergenc Maria Guadalupe RothEDW 209 23:31:00 01:08:00 harley YANEZ, [facility]
[2017-10-24] MEDS ORDERED: MECLIZINE 12.5 MG TABLET PO PRN (14:00)
[2017-10-24] MEDS ORDERED: NON-FORMULARY MEDICATION 1 EACH EACH (Ondansetron [Zofran Odt] 8 MG) PO PRN (14:00)
[2017-10-24] MEDS ORDERED: ACETAMINOPHEN 325 MG TABLET PO PRN (14:00)
[2017-10-24] MEDS ORDERED: HALOPERIDOL 0.5 MG TABLET PO PRN (14:00)
[2017-10-24] MEDS ORDERED: GUAIFENESIN/DM 5ml ORAL LIQUID PO PRN (14:00)
[2017-10-24] MEDS ORDERED: TRIAMCINOLONE 0.025% CREAM 15 G TUBE TOP PRN (14:00)
[2017-10-24] MEDS ORDERED: HALOPERIDOL 5 MG/ML INJECTION IM PRN (14:00)
[2017-10-24] MEDS ORDERED: ONDANSETRON ODT 4 MG TABLET SL PRN (14:10)
--- NOTE | 2017-10-24 14:59 | History & Physical Report ---
History of Present Illness Date: 10/24/17 Chief complaint: dementia with behavioral disturbance, paranoia HPI: Chula Ferreira is a very polite 87-year-old female patient of Dr. Herrmann who currently resides at [facility] in [place] with her , Brennon. She was brought to [facility] ED today, 10/24/17, by her family for evaluation of increased behaviors and paranoia. She has a history of dementia and over the past 3 weeks has had increasing behaviors. Family reports that she has become very anxious and paranoid, believing that her is having an affair the his physical therapist. She is also experiencing insomnia with confusion between her days and nights as well as increased wandering the facility. At the insistence of one of her primary doctors, Dr. Scott, she was brought to [facility] for further evaluation. Upon arrival, blood pressure was noted to be elevated at 183/72. Prior medical records indicate history of hypertension but no current blood pressure medication is listed on her home medications. Labs were obtained and revealed anemia with hemoglobin at 11.0 and otherwise unremarkable. UA was negative and troponin was negative. CXR was obtained and was negative for acute process. While in the ED, she reportedly had some nausea and was given Zofran as well as Questran. [facility] evaluation and treatment. The hospitalist service was consulted for medical management. On exam, she is seen while sitting in the day room, awaiting her family's return to get her. She is a poor historian given her dementia and her speech is disorganized with tangential thoughts. Review of Systems All systems PM: 10-point ROS was reviewed, no additional remarkable complaints except Review of systems: limited due to dementia - Constitutional Constitutional: Absent: chills, headache(s), weakness - EENMT Eyes: Absent: photophobia Balance: Absent: falling to one side Nose: Absent: nosebleeds Mouth/Throat: Absent: sore throat, painful swallowing - Cardiovascular Cardiovascular: Present: edema. Absent: chest pain, palpitations, syncope, dyspnea on exertion Vascular: Present: pedal edema. Absent: pallor of an extermity, unilateral swelling - Respiratory Respiratory: Absent: cough, dyspnea, dyspnea on exertion, wheezing - Gastrointestinal Gastrointestinal: Present: nausea. Absent: abdominal pain, vomiting - Genitourinary Genitourinary: Absent: dysuria, flank pain, hematuria Menstruation: post menopausal - Musculoskeletal Musculoskeletal: Present: abnormal gait (shuffling). Absent: back pain, deformity, muscle weakness - Integumentary/Breasts Integumentary: Absent: rash - Neurological Neurological: Present: abnormal gait (shuffling), confusion, dizziness ( occasional). Absent: convulsions, focal weakness, headache(s), weakness - Psychiatric Psychiatric: Present: abnormal sleep pattern, anxiety, behavioral changes, depression - Endocrine Endocrine: Absent: heat intolerance, palpitations - Hematologic/Lymphatic Hematologic/Lymphatic: Absent: easy bruising - Allergic/Immunologic Allergic/Immunologic: Absent: seasonal rhinorrhea Past Medical History Patient Stated Medical History Dementia. Hypertension. GERD. Depression. Paranoid disorder. Schizophrenia. Chronic kidney disease, stage III. Hypothyroidism. Hyperlipidemia. History of hypocalcemia. History of vertigo/dizziness. Gait instability. Surgical History: Patient initially denied surgical history then admitted to tonsillectomy, appendectomy and cholecystectomy the accuracy of information is questionable given patient's confusion and history of dementia. Family History Updates: Unable to obtain due to patient's dementia. - Social History Smoking status: Never smoker Substance use type: does not use Alcohol intake frequency: does not drink Housing: assisted living facility ([facility]) Household members: spouse (Brennno) Current occupational status: retired ([employer]) Does patient use chewing tobacco?: No Current residence: Assisted Living Social history: Currently lives with her , Brennon, whom she has been to since 1964, she believes. She states she has one daughter, Beatrice, who lives in [place]. PCP - Dr. Scott and Dr. Herrmann. Neuro - Dr. Mckeon. Medications Home Medications Medication Instructions Recorded Confirmed Type Acetaminophen 325 - 650 mg PO Q6H PRN 10/24/17 10/24/17 History Cholestyramine (with Sugar) 4 gm PO BID 10/24/17 10/24/17 History [Questran Packet] Famotidine [Pepcid] 20 mg PO BID 10/24/17 10/24/17 History Guaifenesin/Dm Oral Liq 5 ml PO Q4H PRN 10/24/17 10/24/17 History [Robitussin Dm] Hydroxychloroquine Sulfate 400 mg PO WB 10/24/17 10/24/17 History [Plaquenil] LORazepam [Ativan] 0.5 mg PO Q6H PRN 10/24/17 10/24/17 History Levothyroxine Sodium 75 mg PO ACB 10/24/17 10/24/17 History Meclizine [Antivert] 12.5 - 25 mg PO TID PRN 10/24/17 10/24/17 History Memantine [Namenda] 10 mg PO BID 10/24/17 10/24/17 History Ondansetron [Zofran Odt] 8 mg PO Q6H PRN 10/24/17 10/24/17 History Triamcinolone Acetonide 1 applicatio TOP BID PRN 10/24/17 10/24/17 History Ziprasidone HCl [Geodon] 20 mg PO BID 10/24/17 10/24/17 History Allergies Allergy/AdvReac Type Severity Reaction Status Date / Time No Known Allergies Allergy Verified 10/24/17 11:33 Exam Vital Signs: Temperature 98.7 F 10/24/17 11:13 Pulse Rate 63 10/24/17 13:27 Respiratory Rate 18 10/24/17 13:27 Blood Pressure 183/72 H 10/24/17 11:15 Pulse Oximetry 96 10/24/17 13:27 Height/Weight/BMI: Weight 156 lb 8.451 oz Comments: Patient is seen while sitting in the day room, reportedly waiting for her family to come get her because they had a miscommunication about where to meet. - Constitutional Present: no acute distress, well nourished, well developed, cooperative Comments: mildly anxious on exam but polite. - Routine HEENT Exam Head: Present: normocephalic, atraumatic Eye: Present: PERRL. Absent: conjunctival icterus ENT: Present: mucous membranes moist - Routine Neck Exam Present: supple, full ROM, trachea midline - Routine Chest/Breast/Axilla Exam Chest wall: Absent: pacemaker - Routine Respiratory Exam Present: CTA bilaterally. Absent: rales, rhonchi, stridor, wheezes, crackles - Routine Cardiovascular Exam Present: RRR, S1, S2 - Routine Abdominal Exam Present: soft, normoactive bowel sounds, non tender, distended - Routine Extremities Exam Present: edema (2+ bilateral lower extremity), non tender, pulses intact - Routine Back/Spine/Pelvis Exam Back/Spine: Present: full ROM. Absent: vertebral tenderness - Routine Skin Exam Present: dry, warm. Absent: jaundice Comments: afebrile - Routine Neurological Exam Present: alert (orientated to self only.), moving all extremities, hearing grossly intact. Absent: facial asymmetry speech is disorganized with tangential thoughts. - Routine Psychiatric Exam Present: cooperative, anxious. Absent: good insight, good judgment Results - Labs CBC & Chem 7: 10/24/17 11:34 10/24/17 11:34 - Imaging and Cardiology Chest x-ray Status: image reviewed by me Additional comments: Date of Exam: 10/24/17 Type of Exam(s): XR chest 1V Reason for Exam(s): med. clearance FINDINGS: The lungs are clear. There is no abnormal airspace opacity, pleural effusion or pneumothorax identified. The heart size, pulmonary vasculature and mediastinum are within normal limits. IMPRESSION: No acute cardiopulmonary abnormality. Assessment and Plan (1) Major neurocognitive disorder Current visit: Yes Status: Acute Assessment and Plan: Assessment Major neurocognitive disorder with behavioral disturbance and paranoia. Anemia, unspecified - present on admission. Dementia. Hypertension. GERD. Depression. Paranoid disorder. Schizophrenia. Chronic kidney disease, stage III. Hypothyroidism. Hyperlipidemia. History of hypocalcemia. History of vertigo/dizziness. Gait instability. Plan - 10/24/17 (Admission) Agree with [facility] to [facility] for further psychiatric evaluation and treatment per Dr. Ortega and team. Hospitalist service consulted for medical management. Admission labs revealed anemia with hemoglobin at 11.0. Prior labs unavailable. Will monitor hemoglobin periodically throughout admission. Will assess TSH and B12 for additional evaluation given anemia and history of hypothyroidism. CKD, stage III with GFR of 52 on admission. SCr 1.0 on admission. Continue to monitor periodically. Will continue home medications. Continue home Pepcid for GERD and GI protection. History of dizziness/vertigo. Continue antivert as needed for vertigo. Was previously receiving physical therapy for shuffled gait. Monitor closely due to increased fall risk given history of dizziness and gait instability. Provide safe and supportive environment. Encourage patient participation in floor actives. Upon discharge, patient's care will be returned to her PCP, Dr. Herrmann and Dr. Scott. Extensive review of patient's chart verified paper copy of patient's wishes to be DNR. Will change codes states to such. GI Prophylaxis: Protonix Resuscitation Status: Do Not Resuscitate - Time spent with patient Time with patient PN: 70 minutes - Physician Narrative Physician: Angelica Alcaraz MD Narrative: Date: 10/24/17 Time: 2239 I have independently evaluated and examined this patient. I reviewed the chart, the patient's history, and the LAC[employer] SPRAYER/PA's documented findings as above. We discussed and formulated the assessment and plan as above with additions as below: Mrs. Ferreira is a very cute elderly demented female who is unable to provide any history. Behavioral changes reported at her home facility as noted above. Patient advised me that she hoped she didn't have any cardiac disease and that she used to have diarrhea and then asked the aid sitting next to her if she's had any chest pain recently. She could not recall where she lived and then told me she lived in [place]. Pleasantly confused, NAD, cooperative Respirations nonlabored, good airflow, anterior breath sounds clear Regular cardiac rhythm Facial structure symmetric, EOMI, conjugate gaze, tongue midline, facial structure symmetric and sensation intact across the face Moving all extremities well and motor tone is normal, power is symmetric although patient does not follow directions well to formally assess strength; no tremor. Sensation intact to light touch 4 extremities EKG reviewed by myself-sinus rhythm with first-degree block, possible old anterior/inferior CA, diffuse T-wave flattening Chest x-ray also reviewed by myself-NAD Minor anemia with hemoglobin 11.0 and MCV 96, creatinine 1.0 and GFR 52, remainder of chemistries unremarkable, TSH 6.88 Free T4 and B-12 pending Blood pressure has improved sequentially; continue to monitor. May require minor adjustment in TSH dose if free T4 depressed. Thank you for allowing us to participate in Mrs. Ferreira's care Hospital Course Summary Disclaimer: The visit summary below is not to be considered part of the above Progress Note. Hospital Course: Plan - 10/24/17 (Admission) [facility] with [facility] for further psychiatric evaluation and treatment per Dr. Ortega and team. Hospitalist service consulted for medical management. Admission labs revealed anemia with hemoglobin at 11.0. Prior labs unavailable. Will monitor hemoglobin periodically throughout admission. Will assess TSH and B12 for additional evaluation given anemia and history of hypothyroidism. CKD, stage III with GFR of 52 on admission. SCr 1.0 on admission. Continue to monitor periodically. Will continue home medications. Continue home Pepcid for GERD and GI protection. History of dizziness/vertigo. Continue antivert as needed for vertigo. Was previously receiving physical therapy for shuffled gait. Monitor closely due to increased fall risk given history of dizziness and gait instability. Provide safe and supportive environment. Encourage patient participation in floor actives. upon discharge, patient's care will be returned to her PCP, Dr. Herrmann and Dr. Scott.
[2017-10-24] MEDS: ZIPRASIDONE 20 MG CAPSULE PO SCH (17:14)
[2017-10-24] MEDS: LORazepam 0.5 MG TABLET PO PRN (18:00)
[2017-10-24] MEDS: CHOLESTYRAMINE LIGHT 4 G PACKET PO SCH (20:31)
[2017-10-24] MEDS: FAMOTIDINE 20 MG TABLET PO SCH (20:31)
[2017-10-24] MEDS: MEMANTINE 10 MG TABLET PO SCH (20:31)
[2017-10-24] MEDS ORDERED: CHOLESTYRAMINE 4 GM PO SCH (21:00)
[2017-10-24] MEDS ORDERED: [UNRECOGNIZED DRUG - OTHER] PO SCH (21:00)
[2017-10-25] MEDS: MEMANTINE 10 MG TABLET PO SCH ×2 (09:29→19:58)
[2017-10-25] MEDS: HYDROXYCHLOROQUINE 200 MG TABLET PO SCH (09:29)
[2017-10-25] MEDS: ZIPRASIDONE 20 MG CAPSULE PO SCH ×2 (09:29→17:00)
[2017-10-25] MEDS: LEVOTHYROXINE 75 MCG TABLET PO SCH (09:29)
[2017-10-25] MEDS: FAMOTIDINE 20 MG TABLET PO SCH ×2 (09:30→19:58)
[2017-10-25] MEDS: CHOLESTYRAMINE LIGHT 4 G PACKET PO SCH ×2 (09:30→22:08)
--- NOTE | 2017-10-25 12:30 | 24 Hour Neuropsychiatic Eval ---
Date of Admission: 10/24/17 12:19 Chief complaint: "I dont know" History of Present Illness: HPI: 87 Y/O CF with a hx of dementia sent from [facility] for increased paranoia. According to AL over the last 3 weeks the pt has been paranoid that her who lives with her at the facility is having an affair with his PT worker. She has also chilo more confused with poor sleep. [facility] staff report the pt is only oriented x 1 and is anxious at times. Yesterday pt received Ativan at at supper and Haldol at 2030 for agitation. On face to face the pt appears anxious and confused. She states she is not sure where she is and just wants to go back to her . She does not remember saying her was having an affair. She denies any depression or other symptoms but again appears anxious. PSYCH ROS: Pt is a very poor historian but appears anxious and confused. PAST PSYCH: Unclear at this time. She reportedly has a hx of dementia and is taking Namenda and Geodon [facility] Patient Stated Medical History Dementia Yes Hypertension Yes Gastroesophageal Reflux Yes Disease Other Musculoskeletal Yes: dizziness Other Yes: hypocalcemia Depression Yes Paranoid Disorder Yes Schizophrenia Yes Surgical History: Patient initially denied surgical history then admitted to tonsillectomy, appendectomy and cholecystectomy the accuracy of information is questionable given patient's confusion and history of dementia. - Social History Smoking status: Never smoker Review of Systems - EENMT Balance: Absent: falling to one side Nose: Absent: nosebleeds Mouth/Throat: Absent: sore throat, painful swallowing - Cardiovascular Vascular: Present: pedal edema. Absent: pallor of an extermity, unilateral swelling - Genitourinary Menstruation: post menopausal Mental Status Exam Vitals: Last Vital Signs Temp 97.1 F 10/25/17 08:00 Pulse 69 10/25/17 08:00 Resp 20 10/25/17 08:00 BP 167/74 H 10/25/17 08:00 Pulse Ox 99 10/25/17 08:00 Height: 1.57 m Weight: 71 kg - Mental Status Exam Muscle Strength/Tone: Normal Dressing: Casual Grooming: Good Attitude: Guarded Motor Activity: Normal Eye Contact: Fair Speech: Slowed Volume: Soft Rhythm: Appropriate Rhythm Orientation: Oriented to person Mood: Neutral Affect: Anxious Rate of Thoughts: Delayed Thought Organization: Confused Associations: Flight of Ideas Abstract Reasoning: Poor abstract reasoning Thought Content: Delusions Perception/Psychotic: Hx psychosis, not current Language: Naming Impaired Fund of Knowledge: Poor fund of knowledge Memory: Poor-immediate, Poor-recent Suicidal Ideation: None Homicidal Ideation: None Insight: Poor Judgement: Poor Impulse Control: Poor - Laboratory Result Diagrams: 10/24/17 11:34 10/24/17 11:34 Laboratory Results - last 24 hr 10/25/17 06:41 Hemoglobin A1c 5.4 Triglycerides 64 Cholesterol 142 LDL Cholesterol, Calc 74.2 VLDL Cholesterol 12.8 HDL Cholesterol 55 Cholesterol/HDL Ratio 2.6 Assessment and Plan (1) Major neurocognitive disorder Problem details: with behavioral disturbance Current visit: Yes Status: Acute Continue to evaluate and stabilize. Will contact family. Willl consider switching from Geodon to another antipsychotic with families consent
[2017-10-25] MEDS: LORazepam 0.5 MG TABLET PO PRN (14:11)
[2017-10-26] MEDS: MEMANTINE 10 MG TABLET PO SCH ×3 (00:09→20:30)
[2017-10-26] MEDS: FAMOTIDINE 20 MG TABLET PO SCH ×3 (00:09→20:30)
[2017-10-26] MEDS: HYDROXYCHLOROQUINE 200 MG TABLET PO SCH (10:33)
[2017-10-26] MEDS: ZIPRASIDONE 20 MG CAPSULE PO SCH ×2 (10:33→17:47)
[2017-10-26] MEDS: LEVOTHYROXINE 75 MCG TABLET PO SCH (10:34)
[2017-10-26] MEDS: CHOLESTYRAMINE LIGHT 4 G PACKET PO SCH ×2 (10:34→20:30)
--- NOTE | 2017-10-26 10:55 | Neuropsych Progress Note ---
[facility] Subjective Date: 10/26/17 - Sujective/Severity of Illness Medications: Acetaminophen (Tylenol) 325 mg PO Q6H PRN PRN Reason: Pain /Fever Cholestyramine Resin (Questran Light) 4 g PO BID [facility] Last Admin: 10/26/17 10:34 Dose: 4 g Famotidine (Pepcid) 20 mg PO BID [facility] Last Admin: 10/26/17 10:33 Dose: 20 mg Guaifenesin/Dextromethorphan (Robitussin Dm) 5 ml PO Q4H PRN PRN Reason: Cough Haloperidol (Haldol) 0.5 mg PO Q6H PRN PRN Reason: Extreme agitation Last Admin: 10/24/17 20:33 Dose: 0.5 mg Haloperidol Lactate (Haldol) 0.5 mg IM Q6H PRN PRN Reason: Extreme agitation Hydroxychloroquine Sulfate (Plaquenil) 400 mg PO WB [facility] Last Admin: 10/26/17 10:33 Dose: 400 mg Levothyroxine Sodium (Synthroid) 75 mcg PO ACB [facility] Last Admin: 10/26/17 10:34 Dose: 75 mcg Lorazepam (Ativan Inj) 0.5 mg IM Q6H PRN PRN Reason: Extreme agitation Lorazepam (Ativan) 0.5 mg PO Q6H PRN PRN Reason: Extreme agitation Last Admin: 10/25/17 14:11 Dose: 0.5 mg Meclizine HCl (Antivert) 12.5 mg PO TID PRN PRN Reason: Dizziness Memantine (Namenda) 10 mg PO BID [facility] Last Admin: 10/26/17 10:33 Dose: 10 mg Ondansetron HCl (Zofran Po) 8 mg SL Q8H PRN PRN Reason: Nausea &/or vomiting Triamcinolone Acetonide (Kenalog) 1 applic TOP BID PRN PRN Reason: PRN orders [facility] ([facility]) [facility] Last Admin: 10/26/17 10:33 Dose: 20 mg Subjective: Pt seen and chart examined. Nursing reports pt is doing fairly well. Slept well and has a good appetite. Pt has some anxiety and restlessness usually worse in the evenings and was given Ativan at 1400. On face to face the pt is pleasant but confused. She is only oriented to self. She denies any pain. Tolerating meds. Asks to go home Start Time: 10:45 Stop Time: 11:00 Mental Status Exam Vitals: Last Vital Signs Temp 97.0 F 10/26/17 08:00 Pulse 69 10/26/17 08:00 Resp 18 10/26/17 08:00 BP 149/83 H 10/26/17 08:00 Pulse Ox 94 10/26/17 08:00 Height: 1.57 m Weight: 71 kg - Mental Status Exam Muscle Strength/Tone: Normal Dressing: Casual Grooming: Good Attitude: Guarded Motor Activity: Normal Eye Contact: Fair Speech: Slowed Volume: Soft Rhythm: Appropriate Rhythm Orientation: Oriented to person Mood: Neutral Rate of Thoughts: Delayed Thought Organization: Confused Associations: Flight of Ideas Abstract Reasoning: Poor abstract reasoning Thought Content: Delusions Perception/Psychotic: Hx psychosis, not current Language: Naming Impaired Fund of Knowledge: Poor fund of knowledge Memory: Poor-immediate, Poor-recent Suicidal Ideation: None Homicidal Ideation: None Insight: Poor Judgement: Poor Impulse Control: Poor - Laboratory Result Diagrams: 10/24/17 11:34 10/24/17 11:34 Assessment and Plan (1) 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 Hospital Course: Plan - 10/24/17 (Admission) Agree with admission to [facility] unit for further psychiatric evaluation and treatment per Dr. Ortega and team. Hospitalist service consulted for medical management. Admission labs revealed anemia with hemoglobin at 11.0. Prior labs unavailable. Will monitor hemoglobin periodically throughout admission. Will assess TSH and B12 for additional evaluation given anemia and history of hypothyroidism. CKD, stage III with GFR of 52 on admission. SCr 1.0 on admission. Continue to monitor periodically. Will continue home medications. Continue home Pepcid for GERD and GI protection. History of dizziness/vertigo. Continue antivert as needed for vertigo. Was previously receiving physical therapy for shuffled gait. Monitor closely due to increased fall risk given history of dizziness and gait instability. Provide safe and supportive environment. Encourage patient participation in floor actives. upon discharge, patient's care will be returned to her PCP, Dr. Herrmann and Dr. Scott. 10/26/2017 Some anxiety and restlessness at times. No paranoia noted. Will contact family and discuss switch from Geodon to Risperdal
[2017-10-26] MEDS: LORazepam 0.5 MG TABLET PO PRN (13:48)
--- NOTE | 2017-10-26 16:42 | Progress Note ---
- Date 10/26/17 Subjective: Mrs. Ferreira is seen in follow up. She is playing Bingo with other patients, which we discussed. She is dressed very nicely, is well groomed. Does not appear anxious. She is a poor historian, but is fairly cooperative. Chart is reviewed- behaviors are improving. Objective Vital signs: Temperature 97.0 F 10/26/17 08:00 Pulse Rate 69 10/26/17 08:00 Respiratory Rate 18 10/26/17 08:00 Blood Pressure 149/83 H 10/26/17 08:00 Pulse Oximetry 94 10/26/17 08:00 Rhythm: Normal Sinus Rhythm Height/Weight/BMI: Weight 71 kg - Constitutional Present: no acute distress, average body habitus, cooperative - Routine HEENT Exam Head: Present: normocephalic, atraumatic Eye: Present: EOMI, PERRL ENT: Present: mucous membranes moist - Routine Respiratory Exam Present: CTA bilaterally. Absent: rhonchi, wheezes, crackles - Routine Cardiovascular Exam Present: RRR, S1, S2, no murmur - Routine Abdominal Exam Present: soft, normoactive bowel sounds, non distended, non tender - Routine Extremities Exam Present: no edema, non tender - Routine Skin Exam Present: intact, dry, warm - Routine Neurological Exam Present: alert, moving all extremities - Routine Psychiatric Exam Present: cooperative. Absent: normal thought process Results - Labs CBC & Chem 7: 10/24/17 11:34 10/24/17 11:34 Assessment and Plan (1) Major neurocognitive disorder Problem details: with behavioral disturbance Current visit: Yes Status: Acute Assessment and Plan: Assessment Major neurocognitive disorder with behavioral disturbance and paranoia. Anemia, unspecified - present on admission. Dementia. Hypertension. GERD. Depression. Paranoid disorder. Schizophrenia. Chronic kidney disease, stage III. Hypothyroidism. Hyperlipidemia. History of hypocalcemia. History of vertigo/dizziness. Gait instability. Plan - 10/26/17 Chula is doing well medically. We will repeat labs in AM for stability. She seems to be less suspicious while here- may need consideration for a more monitored living environment. BP has been trending up- may need to add medication if persists. There is an unspecified autoimmune issue- pt. is taking Plaquenil- monitor for s/sx infection while here. TSH is mildly elevated- monitor. Recheck in 4-6 weeks. - Physician Narrative Narrative: Date: 10/26/17 Time: 1638 Hospital Course Summary Disclaimer: The visit summary below is not to be considered part of the above Progress Note. Hospital Course: Plan - 10/24/17 (Admission) Agree with admission to [facility] unit for further psychiatric evaluation and treatment per Dr. Ortega and team. Hospitalist service consulted for medical management. Admission labs revealed anemia with hemoglobin at 11.0. Prior labs unavailable. Will monitor hemoglobin periodically throughout admission. Will assess TSH and B12 for additional evaluation given anemia and history of hypothyroidism. CKD, stage III with GFR of 52 on admission. SCr 1.0 on admission. Continue to monitor periodically. Will continue home medications. Continue home Pepcid for GERD and GI protection. History of dizziness/vertigo. Continue antivert as needed for vertigo. Was previously receiving physical therapy for shuffled gait. Monitor closely due to increased fall risk given history of dizziness and gait instability. Provide safe and supportive environment. Encourage patient participation in floor actives. upon discharge, patient's care will be returned to her PCP, Dr. Herrmann and Dr. Scott. 10/26/2017 Some anxiety and restlessness at times. No paranoia noted. Will contact family and discuss switch from Geodon to Risperdal Plan - 10/26/17 Chula is doing well medically. We will repeat labs in AM for stability. She seems to be less suspicious while here- may need consideration for a more monitored living environment. BP has been trending up- may need to add medication if persists. There is an unspecified autoimmune issue- pt. is taking Plaquenil- monitor for s/sx infection while here. TSH is mildly elevated- monitor. Recheck in 4-6 weeks.
[2017-10-27] MEDS: FAMOTIDINE 20 MG TABLET PO SCH ×3 (11:36→22:10)
[2017-10-27] MEDS: LEVOTHYROXINE 75 MCG TABLET PO SCH (11:36)
[2017-10-27] MEDS: MEMANTINE 10 MG TABLET PO SCH ×3 (11:42→22:09)
[2017-10-27] MEDS: ZIPRASIDONE 20 MG CAPSULE PO SCH ×2 (11:42→18:21)
[2017-10-27] MEDS: CHOLESTYRAMINE LIGHT 4 G PACKET PO SCH ×3 (11:42→22:10)
[2017-10-27] MEDS: HYDROXYCHLOROQUINE 200 MG TABLET PO SCH (11:42)
[2017-10-27] MEDS: LORazepam 0.5 MG TABLET PO PRN (19:44)
--- NOTE | 2017-10-27 21:04 | Neuropsych Progress Note ---
[facility] Subjective Date: 10/27/17 - Sujective/Severity of Illness Medications: Acetaminophen (Tylenol) 325 mg PO Q6H PRN PRN Reason: Pain /Fever Last Admin: 10/26/17 20:30 Dose: 325 mg Cholestyramine Resin (Questran Light) 4 g PO BID [facility] Last Admin: 10/27/17 19:43 Dose: 4 g Famotidine (Pepcid) 20 mg PO BID [facility] Last Admin: 10/27/17 19:45 Dose: 20 mg Guaifenesin/Dextromethorphan (Robitussin Dm) 5 ml PO Q4H PRN PRN Reason: Cough Haloperidol (Haldol) 0.5 mg PO Q6H PRN PRN Reason: Extreme agitation Last Admin: 10/24/17 20:33 Dose: 0.5 mg Haloperidol Lactate (Haldol) 0.5 mg IM Q6H PRN PRN Reason: Extreme agitation Hydroxychloroquine Sulfate (Plaquenil) 400 mg PO WB [facility] Last Admin: 10/27/17 11:42 Dose: 400 mg Levothyroxine Sodium (Synthroid) 75 mcg PO ACB [facility] Last Admin: 10/27/17 11:36 Dose: 75 mcg Lorazepam (Ativan Inj) 0.5 mg IM Q6H PRN PRN Reason: Extreme agitation Lorazepam (Ativan) 0.5 mg PO Q6H PRN PRN Reason: Extreme agitation Last Admin: 10/27/17 19:44 Dose: 0.5 mg Meclizine HCl (Antivert) 12.5 mg PO TID PRN PRN Reason: Dizziness Memantine (Namenda) 10 mg PO BID [facility] Last Admin: 10/27/17 19:45 Dose: 10 mg Ondansetron HCl (Zofran Po) 8 mg SL Q8H PRN PRN Reason: Nausea &/or vomiting Triamcinolone Acetonide (Kenalog) 1 applic TOP BID PRN PRN Reason: PRN orders [facility] ([facility]) [facility] Last Admin: 10/27/17 18:21 Dose: 20 mg Subjective: Patient seen and chart reviewed. Case discussed with treatment team. On interview, patient is pleasant though confused. She reports feeling better because she had visitors, but says the nights are hard because she misses her and children. She tells me her is a good, Protestant man but "sometimes he falls apart." Patient denies any SI, HI or AVH. Patient denies any adverse side effects related to psychotropic medications. Nursing staff report patient is anxious, moreso with male staff, and impulsive at times. Patient has been adherent with medications. Patient slept 7.25 hours overnight. VSS. Patient is eating well. Psychotropic PRNs required in the past 24 hours: Ativan 0.5mg PO at 1348 for increased anxiety. Start Time: 19:20 Stop Time: 19:40 Mental Status Exam Vitals: Last Vital Signs Temp 96.8 F 10/27/17 16:00 Pulse 74 10/27/17 16:00 Resp 18 10/27/17 16:00 BP 136/75 10/27/17 16:00 Pulse Ox 96 10/27/17 16:00 Height: 1.57 m Weight: 71 kg - Mental Status Exam Muscle Strength/Tone: Normal Dressing: Casual Grooming: Good Attitude: Cooperative Motor Activity: Normal Eye Contact: Fair Speech: Slowed Volume: Soft Rhythm: Appropriate Rhythm Orientation: Oriented to person Mood: Neutral Affect: Anxious Rate of Thoughts: Delayed Thought Organization: Confused Associations: Flight of Ideas Abstract Reasoning: Poor abstract reasoning Thought Content: Delusions Perception/Psychotic: Hx psychosis, not current Language: Naming Impaired Fund of Knowledge: Poor fund of knowledge Memory: Poor-immediate, Poor-recent Suicidal Ideation: None Homicidal Ideation: None Insight: Poor Judgement: Poor Impulse Control: Poor - Laboratory Result Diagrams: 10/27/17 06:45 10/27/17 06:45 Laboratory Results - last 24 hr 10/27/17 10/27/17 06:45 06:45 WBC 6.4 RBC 3.75 L Hgb 11.4 L Hct 35.9 L MCV 95.7 MCH 30.4 MCHC 31.8 RDW Std Deviation 46.4 Plt Count 277 MPV 9.5 Immature Gran % (Auto) 0.3 Neut % (Auto) 52.5 Lymph % (Auto) 29.7 Door % (Auto) 9.7 H Eos % (Auto) 6.4 H Baso % (Auto) 1.4 Neut # (Auto) 3.4 Lymph # (Auto) 1.9 Door # (Auto) 0.6 Eos # (Auto) 0.4 Baso # (Auto) 0.1 Abs Immat Gran (auto) 0.02 Turbidity < 20 Sodium 143 Potassium 3.9 Chloride 109 H Carbon Dioxide 25 Anion Gap 9 BUN 19.0 H Creatinine 0.8 D GFR Calculation 68 BUN/Creatinine Ratio 24 Glucose 96 Calculated Osmolality 277 Calcium 9.0 Icterus Index < 2 Specimen Hemolysis < 15 Assessment and Plan (1) Major neurocognitive disorder Problem details: with behavioral disturbance Current visit: Yes Status: Acute (2) Hypertension Current visit: Yes Status: Acute (3) Hypothyroidism Current visit: Yes Status: Acute (4) CKD (chronic kidney disease), stage III Current visit: Yes Status: Acute (5) Hyperlipidemia Current visit: Yes Status: Acute Continue to monitor current care for the time being. Hospital Course Summary Disclaimer: The visit summary below is not to be considered part of the above Progress Note. Hospital Course: Plan - 10/24/17 (Admission) Agree with admission to [facility] for further psychiatric evaluation and treatment per Dr. Ortega and team. Hospitalist service consulted for medical management. Admission labs revealed anemia with hemoglobin at 11.0. Prior labs unavailable. Will monitor hemoglobin periodically throughout admission. Will assess TSH and B12 for additional evaluation given anemia and history of hypothyroidism. CKD, stage III with GFR of 52 on admission. SCr 1.0 on admission. Continue to monitor periodically. Will continue home medications. Continue home Pepcid for GERD and GI protection. History of dizziness/vertigo. Continue antivert as needed for vertigo. Was previously receiving physical therapy for shuffled gait. Monitor closely due to increased fall risk given history of dizziness and gait instability. Provide safe and supportive environment. Encourage patient participation in floor actives. upon discharge, patient's care will be returned to her PCP, Dr. Herrmann and Dr. Scott. 10/26/2017 Some anxiety and restlessness at times. No paranoia noted. Will contact family and discuss switch from Geodon to Risperdal Plan - 10/26/17 Chula is doing well medically. We will repeat labs in AM for stability. She seems to be less suspicious while here- may need consideration for a more monitored living environment. BP has been trending up- may need to add medication if persists. There is an unspecified autoimmune issue- pt. is taking Plaquenil- monitor for s/sx infection while here. TSH is mildly elevated- monitor. Recheck in 4-6 weeks.
[2017-10-28] MEDS: LEVOTHYROXINE 75 MCG TABLET PO SCH (08:12)
[2017-10-28] MEDS: HYDROXYCHLOROQUINE 200 MG TABLET PO SCH (08:12)
[2017-10-28] MEDS: MEMANTINE 10 MG TABLET PO SCH ×2 (08:13→21:09)
[2017-10-28] MEDS: ZIPRASIDONE 20 MG CAPSULE PO SCH (08:13)
[2017-10-28] MEDS: CHOLESTYRAMINE LIGHT 4 G PACKET PO SCH ×2 (08:13→21:09)
[2017-10-28] MEDS: FAMOTIDINE 20 MG TABLET PO SCH ×2 (08:13→21:09)
[2017-10-28] MEDS: LORazepam 0.5 MG TABLET PO PRN (09:04)
--- NOTE | 2017-10-28 16:07 | Neuropsych Progress Note ---
[facility] Subjective Date: 10/28/17 - Sujective/Severity of Illness Medications: Acetaminophen (Tylenol) 325 mg PO Q6H PRN PRN Reason: Pain /Fever Last Admin: 10/26/17 20:30 Dose: 325 mg Cholestyramine Resin (Questran Light) 4 g PO BID [facility] Last Admin: 10/28/17 08:13 Dose: 4 g Famotidine (Pepcid) 20 mg PO BID [facility] Last Admin: 10/28/17 08:13 Dose: 20 mg Guaifenesin/Dextromethorphan (Robitussin Dm) 5 ml PO Q4H PRN PRN Reason: Cough Haloperidol (Haldol) 0.5 mg PO Q6H PRN PRN Reason: Extreme agitation Last Admin: 10/24/17 20:33 Dose: 0.5 mg Haloperidol Lactate (Haldol) 0.5 mg IM Q6H PRN PRN Reason: Extreme agitation Hydroxychloroquine Sulfate (Plaquenil) 400 mg PO WB [facility] Last Admin: 10/28/17 08:12 Dose: 400 mg Levothyroxine Sodium (Synthroid) 75 mcg PO ACB [facility] Last Admin: 10/28/17 08:12 Dose: 75 mcg Lorazepam (Ativan Inj) 0.5 mg IM Q6H PRN PRN Reason: Extreme agitation Lorazepam (Ativan) 0.5 mg PO Q6H PRN PRN Reason: Extreme agitation Last Admin: 10/28/17 09:04 Dose: 0.5 mg Meclizine HCl (Antivert) 12.5 mg PO TID PRN PRN Reason: Dizziness Memantine (Namenda) 10 mg PO BID [facility] Last Admin: 10/28/17 08:13 Dose: 10 mg Ondansetron HCl (Zofran Po) 8 mg SL Q8H PRN PRN Reason: Nausea &/or vomiting Triamcinolone Acetonide (Kenalog) 1 applic TOP BID PRN PRN Reason: PRN orders [facility]rasidone ([facility]) [facility] Last Admin: 10/28/17 08:13 Dose: 20 mg Subjective: Patient seen and chart reviewed. Case discussed with treatment team. Patient is asleep at time of rounds. Nursing staff report patient is anxious, moreso with male staff, and impulsive at times. She was crying looking for her daughter today and reportedly had VH of a bird and mouse in her room overnight. Patient has been adherent with medications. Patient slept ~8 hours overnight. VSS. Patient is eating well. Psychotropic PRNs required in the past 24 hours: Ativan 0.5mg PO for anxiety. MSE based in part on my last interaction with her. Start Time: 10:20 Stop Time: 10:40 Mental Status Exam Vitals: Last Vital Signs Temp 96.8 F 10/28/17 08:00 Pulse 80 10/28/17 08:00 Resp 24 10/28/17 08:00 BP 136/74 10/28/17 08:00 Pulse Ox 94 10/28/17 08:00 Height: 1.57 m Weight: 71 kg - Mental Status Exam Muscle Strength/Tone: Normal Dressing: Casual Grooming: Good Attitude: Cooperative Motor Activity: Normal Eye Contact: Fair Speech: Slowed Volume: Soft Rhythm: Appropriate Rhythm Orientation: Oriented to person Mood: Neutral Rate of Thoughts: Delayed Thought Organization: Confused Associations: Flight of Ideas Abstract Reasoning: Poor abstract reasoning Thought Content: Delusions Perception/Psychotic: Hx psychosis, not current Language: Naming Impaired Fund of Knowledge: Poor fund of knowledge Memory: Poor-immediate, Poor-recent Suicidal Ideation: None Homicidal Ideation: None Insight: Poor Judgement: Poor Impulse Control: Poor - Laboratory Result Diagrams: 10/27/17 06:45 10/27/17 06:45 Assessment and Plan (1) Major neurocognitive disorder Problem details: with behavioral disturbance Current visit: Yes Status: Acute (2) Hypertension Current visit: Yes Status: Acute (3) Hypothyroidism Current visit: Yes Status: Acute (4) CKD (chronic kidney disease), stage III Current visit: Yes Status: Acute (5) Hyperlipidemia Current visit: Yes Status: Acute Increase Geodon to 20mg PO q AM and 40mg PO with dinner (must be taken with food ). Hospital Course Summary Disclaimer: The visit summary below is not to be considered part of the above Progress Note. Hospital Course: Plan - 10/24/17 (Admission) Agree with admission to [facility] unit for further psychiatric evaluation and treatment per Dr. Ortega and team. Hospitalist service consulted for medical management. Admission labs revealed anemia with hemoglobin at 11.0. Prior labs unavailable. Will monitor hemoglobin periodically throughout admission. Will assess TSH and B12 for additional evaluation given anemia and history of hypothyroidism. CKD, stage III with GFR of 52 on admission. SCr 1.0 on admission. Continue to monitor periodically. Will continue home medications. Continue home Pepcid for GERD and GI protection. History of dizziness/vertigo. Continue antivert as needed for vertigo. Was previously receiving physical therapy for shuffled gait. Monitor closely due to increased fall risk given history of dizziness and gait instability. Provide safe and supportive environment. Encourage patient participation in floor actives. upon discharge, patient's care will be returned to her PCP, Dr. Herrmann and Dr. Scott. 10/26/2017 Some anxiety and restlessness at times. No paranoia noted. Will contact family and discuss switch from Geodon to Risperdal Plan - 10/26/17 Chula is doing well medically. We will repeat labs in AM for stability. She seems to be less suspicious while here- may need consideration for a more monitored living environment. BP has been trending up- may need to add medication if persists. There is an unspecified autoimmune issue- pt. is taking Plaquenil- monitor for s/sx infection while here. TSH is mildly elevated- monitor. Recheck in 4-6 weeks. 10/27/17 Psych: Increase Geodon to 20mg PO q AM and 40mg PO with dinner (must be taken with food).
[2017-10-28] MEDS: ZIPRASIDONE 40 MG CAPSULE PO SCH (17:28)
[2017-10-29] MEDS: CHOLESTYRAMINE LIGHT 4 G PACKET PO SCH ×2 (10:15→19:36)
[2017-10-29] MEDS: LEVOTHYROXINE 75 MCG TABLET PO SCH (10:15)
[2017-10-29] MEDS: FAMOTIDINE 20 MG TABLET PO SCH ×2 (10:15→19:38)
[2017-10-29] MEDS: HYDROXYCHLOROQUINE 200 MG TABLET PO SCH (10:15)
[2017-10-29] MEDS: ZIPRASIDONE 20 MG CAPSULE PO SCH (10:16)
[2017-10-29] MEDS: MEMANTINE 10 MG TABLET PO SCH ×2 (10:16→19:36)
--- NOTE | 2017-10-29 14:53 | Progress Note ---
- Date 10/29/17 Subjective: Chula is seen today while sitting in a recliner, listening to music in the day room. She repeatedly asks if the older lady lives down the road, pointing out the window, but is unable to identify which older woman. She becomes tearful on exam, asking where her daughter and are, then stating that they left her "here". Her thoughts are tangential and disorganized. She denies any other complaints or concerns. No chest pain, shortness of breath, abdominal pain, nausea, vomiting or dysuria. Medical record and nursing notes were reviewed thoroughly and indicate that she continues to be anxious and impulsive as well as having reported visual hallucinations of a bird and a mouse in her room over the night. She has been sleeping well and continues to need occasional PRN medications for agitation. Her appetite is stable and bowels are moving. Recent labs on 10/27 revealed stable anemia with Hgb at 11.4 and otherwise unremarkable. Objective Vital signs: Temperature 97.0 F 10/29/17 08:00 Pulse Rate 78 10/29/17 08:00 Respiratory Rate 18 10/29/17 08:00 Blood Pressure 150/78 H 10/29/17 08:00 Pulse Oximetry 97 10/29/17 08:00 Rhythm: Normal Sinus Rhythm Height/Weight/BMI: Weight 156 lb 8.451 oz Comments: sitting in recliner, looking out the window for her daughter, listening to music ; tearful on exam. - Constitutional Present: no acute distress, well nourished, well developed, cooperative Comments: tearful. - Routine HEENT Exam Head: Present: normocephalic, atraumatic Eye: Present: PERRL. Absent: conjunctival icterus ENT: Present: mucous membranes dry - Routine Respiratory Exam Present: CTA bilaterally. Absent: rales, rhonchi, stridor, wheezes, crackles Comments: poor inspiratory effort resulting in limited exam; no cough or respiratory distress; no conversational dyspnea. - Routine Cardiovascular Exam Present: RRR, S1, S2 - Routine Abdominal Exam Present: soft, normoactive bowel sounds, non distended, non tender - Routine Extremities Exam Present: edema (trace), pulses intact - Routine Back/Spine/Pelvis Exam Back/Spine: Present: kyphosis. Absent: vertebral tenderness - Routine Musculoskeletal Exam Musculoskeletal: Present: moving extremities well - Routine Skin Exam Present: dry, warm. Absent: jaundice Comments: afebrile - Routine Neurological Exam Present: alert (orientated to self only), moving all extremities, hearing grossly intact, normal speech. Absent: facial asymmetry - Routine Lymphatic Exam Lymphatic: Absent: lymphedema - Routine Psychiatric Exam Present: visual hallucinations, cooperative Comments: tearful Results - Labs CBC & Chem 7: 10/27/17 06:45 10/27/17 06:45 Assessment and Plan (1) Major neurocognitive disorder Problem details: with behavioral disturbance Current visit: Yes Status: Acute Assessment and Plan: Assessment Major neurocognitive disorder with behavioral disturbance and paranoia. Anemia, unspecified - present on admission. Dementia. Hypertension. GERD. Depression. Paranoid disorder. Schizophrenia. Chronic kidney disease, stage III. Hypothyroidism. Hyperlipidemia. History of hypocalcemia. History of vertigo/dizziness. Gait instability. Plan - 10/29/17 Overall, Chula appears to be medically stable. She continues to have visual hallucinations with some anxiety and restlessness. Continue psychiatric care per Dr. Ortega and team. Continue to provide safe and supportive environment. Blood pressure is variable. Will continue to monitor closely to assess if additional anti-hypertensive medication is warranted. Repeat labs on 10/27 revealed stable anemia. Continue to monitor labs periodically throughout admission. Recheck labs on11/03 to monitor blood counts, electrolytes and renal function. GI Prophylaxis: Pepcid Resuscitation Status: Do Not Resuscitate - Time spent with patient Time with patient PN: 25 minutes - Physician Narrative Physician: Angelica Alcaraz MD Narrative: Date: 10/29/17 Time: 1448 Hospital Course Summary Disclaimer: The visit summary below is not to be considered part of the above Progress Note. Hospital Course: Plan - 10/24/17 (Admission) Agree with admission to [facility] for further psychiatric evaluation and treatment per Dr. Ortega and team. Hospitalist service consulted for medical management. Admission labs revealed anemia with hemoglobin at 11.0. Prior labs unavailable. Will monitor hemoglobin periodically throughout admission. Will assess TSH and B12 for additional evaluation given anemia and history of hypothyroidism. CKD, stage III with GFR of 52 on admission. SCr 1.0 on admission. Continue to monitor periodically. Will continue home medications. Continue home Pepcid for GERD and GI protection. History of dizziness/vertigo. Continue antivert as needed for vertigo. Was previously receiving physical therapy for shuffled gait. Monitor closely due to increased fall risk given history of dizziness and gait instability. Provide safe and supportive environment. Encourage patient participation in floor actives. upon discharge, patient's care will be returned to her PCP, Dr. Herrmann and Dr. Scott. 10/26/2017 Some anxiety and restlessness at times. No paranoia noted. Will contact family and discuss switch from Geodon to Risperdal Plan - 10/26/17 Chula is doing well medically. We will repeat labs in AM for stability. She seems to be less suspicious while here- may need consideration for a more monitored living environment. BP has been trending up- may need to add medication if persists. There is an unspecified autoimmune issue- pt. is taking Plaquenil- monitor for s/sx infection while here. TSH is mildly elevated- monitor. Recheck in 4-6 weeks. 10/27/17 Psych: Increase Geodon to 20mg PO q AM and 40mg PO with dinner (must be taken with food). Plan - 10/29/17 Overall, Chula appears to be medically stable. She continues to have visual hallucinations with some anxiety and restlessness. Continue psychiatric care per Dr. Ortega and team. Continue to provide safe and supportive environment. Blood pressure is variable. Will continue to monitor closely to assess if additional anti-hypertensive medication is warranted. Repeat labs on 10/27 revealed stable anemia. Continue to monitor labs periodically throughout admission. Recheck labs on11/03 to monitor blood counts, electrolytes and renal function.
--- NOTE | 2017-10-29 16:22 | Neuropsych Progress Note ---
[facility] Subjective Date: 10/30/17 - Sujective/Severity of Illness Medications: Acetaminophen (Tylenol) 325 mg PO Q6H PRN PRN Reason: Pain /Fever Last Admin: 10/26/17 20:30 Dose: 325 mg Cholestyramine Resin (Questran Light) 4 g PO BID [facility] Last Admin: 10/29/17 10:15 Dose: 4 g Famotidine (Pepcid) 20 mg PO BID [facility] Last Admin: 10/29/17 10:15 Dose: 20 mg Guaifenesin/Dextromethorphan (Robitussin Dm) 5 ml PO Q4H PRN PRN Reason: Cough Haloperidol (Haldol) 0.5 mg PO Q6H PRN PRN Reason: Extreme agitation Last Admin: 10/24/17 20:33 Dose: 0.5 mg Haloperidol Lactate (Haldol) 0.5 mg IM Q6H PRN PRN Reason: Extreme agitation Hydroxychloroquine Sulfate (Plaquenil) 400 mg PO WB [facility] Last Admin: 10/29/17 10:15 Dose: 400 mg Levothyroxine Sodium (Synthroid) 75 mcg PO ACB [facility] Last Admin: 10/29/17 10:15 Dose: 75 mcg Lorazepam (Ativan Inj) 0.5 mg IM Q6H PRN PRN Reason: Extreme agitation Lorazepam (Ativan) 0.5 mg PO Q6H PRN PRN Reason: Extreme agitation Last Admin: 10/28/17 09:04 Dose: 0.5 mg Meclizine HCl (Antivert) 12.5 mg PO TID PRN PRN Reason: Dizziness Memantine (Namenda) 10 mg PO BID [facility] Last Admin: 10/29/17 10:16 Dose: 10 mg Ondansetron HCl (Zofran Po) 8 mg SL Q8H PRN PRN Reason: Nausea &/or vomiting Triamcinolone Acetonide (Kenalog) 1 applic TOP BID PRN PRN Reason: PRN orders Ziprasidone (Geodon) 20 mg PO 09 [facility] Last Admin: 10/29/17 10:16 Dose: 20 mg Ziprasidone (Geodon) 40 mg PO 18 [facility] Last Admin: 10/28/17 17:28 Dose: 40 mg Subjective: Patient seen and chart reviewed. Case discussed with treatment team. Patient states she is "sad" because her family was supposed to be here. I have not clarified with staff if they have visited today. She does say, "I'll be okay." She reports feeling well physically. She denies any SI, HI or AVH. Nursing staff report patient is anxious, moreso with male staff, and impulsive at times. She was observed picking in the air and appearing to have VH. Patient has been adherent with medications. Patient slept 10 hours overnight. VSS. Appetite is fair. Psychotropic PRNs required in the past 24 hours: None. Start Time: 09:40 Stop Time: 10:00 Mental Status Exam Vitals: Last Vital Signs Temp 97.9 F 10/29/17 15:49 Pulse 75 10/29/17 15:49 Resp 14 10/29/17 15:49 BP 136/77 10/29/17 15:49 Pulse Ox 95 10/29/17 15:49 Height: 1.57 m Weight: 71 kg - Mental Status Exam Muscle Strength/Tone: Normal Dressing: Casual Grooming: Good Attitude: Cooperative Motor Activity: Normal Eye Contact: Fair Speech: Slowed Volume: Soft Rhythm: Appropriate Rhythm Orientation: Oriented to person Mood: Neutral Rate of Thoughts: Delayed Thought Organization: Confused Associations: Flight of Ideas Abstract Reasoning: Poor abstract reasoning Thought Content: Delusions (about cheating), Other (Anxiety re: family) Current Hallucinations: Visual (suspected) Language: Naming Impaired Fund of Knowledge: Poor fund of knowledge Memory: Poor-immediate, Poor-recent Suicidal Ideation: None Homicidal Ideation: None Insight: Poor Judgement: Poor Impulse Control: Poor - Laboratory Result Diagrams: 10/27/17 06:45 10/27/17 06:45 Assessment and Plan (1) Major neurocognitive disorder Problem details: with behavioral disturbance R/O Delirium secondary to unknown etiology Current visit: Yes Status: Acute (2) Hypertension Current visit: Yes Status: Acute (3) Hypothyroidism Current visit: Yes Status: Acute (4) CKD (chronic kidney disease), stage III Current visit: Yes Status: Acute (5) Hyperlipidemia Current visit: Yes Status: Acute Recently increased Geodon dosing; continue to monitor response before further medication changes are made. Hospital Course Summary Disclaimer: The visit summary below is not to be considered part of the above Progress Note. Hospital Course: Plan - 10/24/17 (Admission) Agree with admission to [facility] for further psychiatric evaluation and treatment per Dr. Ortega and team. Hospitalist service consulted for medical management. Admission labs revealed anemia with hemoglobin at 11.0. Prior labs unavailable. Will monitor hemoglobin periodically throughout admission. Will assess TSH and B12 for additional evaluation given anemia and history of hypothyroidism. CKD, stage III with GFR of 52 on admission. SCr 1.0 on admission. Continue to monitor periodically. Will continue home medications. Continue home Pepcid for GERD and GI protection. History of dizziness/vertigo. Continue antivert as needed for vertigo. Was previously receiving physical therapy for shuffled gait. Monitor closely due to increased fall risk given history of dizziness and gait instability. Provide safe and supportive environment. Encourage patient participation in floor actives. upon discharge, patient's care will be returned to her PCP, Dr. Herrmann and Dr. Scott. 10/26/2017 Some anxiety and restlessness at times. No paranoia noted. Will contact family and discuss switch from Geodon to Risperdal Plan - 10/26/17 Chula is doing well medically. We will repeat labs in AM for stability. She seems to be less suspicious while here- may need consideration for a more monitored living environment. BP has been trending up- may need to add medication if persists. There is an unspecified autoimmune issue- pt. is taking Plaquenil- monitor for s/sx infection while here. TSH is mildly elevated- monitor. Recheck in 4-6 weeks. 10/27/17 Psych: Increase Geodon to 20mg PO q AM and 40mg PO with dinner (must be taken with food). Plan - 10/29/17 Overall, Chula appears to be medically stable. She continues to have visual hallucinations with some anxiety and restlessness. Continue psychiatric care per Dr. Ortega and team. Continue to provide safe and supportive environment. Blood pressure is variable. Will continue to monitor closely to assess if additional anti-hypertensive medication is warranted. Repeat labs on 10/27 revealed stable anemia. Continue to monitor labs periodically throughout admission. Recheck labs on11/03 to monitor blood counts, electrolytes and renal function. 10/29/17 Psych: Recently increased Geodon dosing; continue to monitor response before further medication changes are made.
[2017-10-29] MEDS: LORazepam 0.5 MG TABLET PO PRN (18:03)
[2017-10-29] MEDS: ZIPRASIDONE 40 MG CAPSULE PO SCH (18:04)
[2017-10-30] MEDS: CHOLESTYRAMINE LIGHT 4 G PACKET PO SCH ×3 (03:42→20:11)
[2017-10-30] MEDS: FAMOTIDINE 20 MG TABLET PO SCH ×3 (03:42→20:23)
[2017-10-30] MEDS: MEMANTINE 10 MG TABLET PO SCH ×3 (03:42→20:13)
[2017-10-30] MEDS: ZIPRASIDONE 20 MG CAPSULE PO SCH (09:58)
[2017-10-30] MEDS: LEVOTHYROXINE 75 MCG TABLET PO SCH (09:58)
[2017-10-30] MEDS: HYDROXYCHLOROQUINE 200 MG TABLET PO SCH (09:58)
[2017-10-30] MEDS: ZIPRASIDONE 40 MG CAPSULE PO SCH (17:50)
--- NOTE | 2017-10-30 21:13 | Neuropsych Progress Note ---
[facility] Subjective Date: 10/30/17 - Sujective/Severity of Illness Medications: Acetaminophen (Tylenol) 325 mg PO Q6H PRN PRN Reason: Pain /Fever Last Admin: 10/26/17 20:30 Dose: 325 mg Cholestyramine Resin (Questran Light) 4 g PO BID [facility] Last Admin: 10/30/17 20:11 Dose: 4 g Famotidine (Pepcid) 20 mg PO BID [facility] Last Admin: 10/30/17 20:23 Dose: 20 mg Guaifenesin/Dextromethorphan (Robitussin Dm) 5 ml PO Q4H PRN PRN Reason: Cough Haloperidol (Haldol) 0.5 mg PO Q6H PRN PRN Reason: Extreme agitation Last Admin: 10/24/17 20:33 Dose: 0.5 mg Haloperidol Lactate (Haldol) 0.5 mg IM Q6H PRN PRN Reason: Extreme agitation Hydroxychloroquine Sulfate (Plaquenil) 400 mg PO WB [facility] Last Admin: 10/30/17 09:58 Dose: 400 mg Levothyroxine Sodium (Synthroid) 75 mcg PO ACB [facility] Last Admin: 10/30/17 09:58 Dose: 75 mcg Lorazepam (Ativan Inj) 0.5 mg IM Q6H PRN PRN Reason: Extreme agitation Lorazepam (Ativan) 0.5 mg PO Q6H PRN PRN Reason: Extreme agitation Last Admin: 10/29/17 18:03 Dose: 0.5 mg Meclizine HCl (Antivert) 12.5 mg PO TID PRN PRN Reason: Dizziness Memantine (Namenda) 10 mg PO BID [facility] Last Admin: 10/30/17 20:13 Dose: 10 mg Ondansetron HCl (Zofran Po) 8 mg SL Q8H PRN PRN Reason: Nausea &/or vomiting Triamcinolone Acetonide (Kenalog) 1 applic TOP BID PRN PRN Reason: PRN orders Ziprasidone (Geodon) 20 mg PO 09 [facility] Last Admin: 10/30/17 09:58 Dose: 20 mg Ziprasidone (Geodon) 40 mg PO 18 [facility] Last Admin: 10/30/17 17:50 Dose: 40 mg Subjective: Patient seen and chart reviewed. Case discussed with treatment team. Patient is sitting in her room and is confused about why she is here, where her family is, etc. She calms fairly well with redirection. She reports feeling well physically. She denies any SI, HI or AVH. Nursing staff report patient is anxious, moreso with male staff, and impulsive at times. She was observed picking in the air and appearing to have VH recently. She did have an episode of increased anxiety today where she yelled at staff but calmed within ~1 hr. without use of PRNs. Increased Geodon dose seemed to be helpful for evening anxiety. Patient has been adherent with medications. Patient slept 10+ hours overnight. VSS. Appetite is fair. Psychotropic PRNs required in the past 24 hours: None. Start Time: 11:40 Stop Time: 12:00 Mental Status Exam Vitals: Last Vital Signs Temp 97.2 F 10/30/17 16:05 Pulse 78 10/30/17 16:05 Resp 18 10/30/17 16:05 BP 134/71 10/30/17 16:05 Pulse Ox 96 10/30/17 16:05 Height: 1.57 m Weight: 71 kg - Mental Status Exam Muscle Strength/Tone: Normal Dressing: Casual Grooming: Good Attitude: Cooperative Motor Activity: Normal Eye Contact: Fair Speech: Slowed Volume: Soft Rhythm: Appropriate Rhythm Orientation: Oriented to person Mood: Neutral Affect: Anxious Rate of Thoughts: Delayed Thought Organization: Confused Associations: Intact Abstract Reasoning: Poor abstract reasoning Thought Content: Delusions (about cheating), Other (Anxiety re: family) Perception/Psychotic: Hx psychosis, not current Current Hallucinations: Visual (suspected - recent) Language: Naming Impaired Fund of Knowledge: Poor fund of knowledge Memory: Poor-immediate, Poor-recent Suicidal Ideation: None Homicidal Ideation: None Insight: Poor Judgement: Poor Impulse Control: Poor - Laboratory Result Diagrams: 10/27/17 06:45 10/27/17 06:45 Assessment and Plan (1) Major neurocognitive disorder Problem details: with behavioral disturbance R/O Delirium secondary to unknown etiology Current visit: Yes Status: Acute (2) Hypertension Current visit: Yes Status: Acute (3) Hypothyroidism Current visit: Yes Status: Acute (4) CKD (chronic kidney disease), stage III Current visit: Yes Status: Acute (5) Hyperlipidemia Current visit: Yes Status: Acute Will increase Geodon to 40mg PO BID as it seems to be helpful in decreasing agitation, anxiety. Hospital Course Summary Disclaimer: The visit summary below is not to be considered part of the above Progress Note. Hospital Course: Plan - 10/24/17 (Admission) Agree with admission to [facility] for further psychiatric evaluation and treatment per Dr. Ortega and team. Hospitalist service consulted for medical management. Admission labs revealed anemia with hemoglobin at 11.0. Prior labs unavailable. Will monitor hemoglobin periodically throughout admission. Will assess TSH and B12 for additional evaluation given anemia and history of hypothyroidism. CKD, stage III with GFR of 52 on admission. SCr 1.0 on admission. Continue to monitor periodically. Will continue home medications. Continue home Pepcid for GERD and GI protection. History of dizziness/vertigo. Continue antivert as needed for vertigo. Was previously receiving physical therapy for shuffled gait. Monitor closely due to increased fall risk given history of dizziness and gait instability. Provide safe and supportive environment. Encourage patient participation in floor actives. upon discharge, patient's care will be returned to her PCP, Dr. Herrmann and Dr. Scott. 10/26/2017 Some anxiety and restlessness at times. No paranoia noted. Will contact family and discuss switch from Geodon to Risperdal Plan - 10/26/17 Chula is doing well medically. We will repeat labs in AM for stability. She seems to be less suspicious while here- may need consideration for a more monitored living environment. BP has been trending up- may need to add medication if persists. There is an unspecified autoimmune issue- pt. is taking Plaquenil- monitor for s/sx infection while here. TSH is mildly elevated- monitor. Recheck in 4-6 weeks. 10/27/17 Psych: Increase Geodon to 20mg PO q AM and 40mg PO with dinner (must be taken with food). Plan - 10/29/17 Overall, Chula appears to be medically stable. She continues to have visual hallucinations with some anxiety and restlessness. Continue psychiatric care per Dr. Ortega and team. Continue to provide safe and supportive environment. Blood pressure is variable. Will continue to monitor closely to assess if additional anti-hypertensive medication is warranted. Repeat labs on 10/27 revealed stable anemia. Continue to monitor labs periodically throughout admission. Recheck labs on11/03 to monitor blood counts, electrolytes and renal function. 10/29/17 Psych: Recently increased Geodon dosing; continue to monitor response before further medication changes are made. 10/30/17 Psych: Will increase Geodon to 40mg PO BID as it seems to be helpful in decreasing agitation, anxiety.
[2017-10-31] MEDS: CHOLESTYRAMINE LIGHT 4 G PACKET PO SCH ×2 (08:41→21:40)
[2017-10-31] MEDS: LEVOTHYROXINE 75 MCG TABLET PO SCH (08:41)
[2017-10-31] MEDS: HYDROXYCHLOROQUINE 200 MG TABLET PO SCH (08:41)
[2017-10-31] MEDS: FAMOTIDINE 20 MG TABLET PO SCH ×2 (08:42→20:32)
[2017-10-31] MEDS: ZIPRASIDONE 40 MG CAPSULE PO SCH ×3 (08:42→17:24)
[2017-10-31] MEDS: MEMANTINE 10 MG TABLET PO SCH ×2 (08:42→20:32)
--- NOTE | 2017-10-31 15:57 | Neuropsych Progress Note ---
[facility] Subjective Date: 10/31/17 - Sujective/Severity of Illness Medications: Acetaminophen (Tylenol) 325 mg PO Q6H PRN PRN Reason: Pain /Fever Last Admin: 10/26/17 20:30 Dose: 325 mg Cholestyramine Resin (Questran Light) 4 g PO BID COUNTS INCLUDE 234 BEDS AT THE [facility] Last Admin: 10/31/17 08:41 Dose: 4 g Famotidine (Pepcid) 20 mg PO BID COUNTS INCLUDE 234 BEDS AT THE [facility] Last Admin: 10/31/17 08:42 Dose: 20 mg Guaifenesin/Dextromethorphan (Robitussin Dm) 5 ml PO Q4H PRN PRN Reason: Cough Haloperidol (Haldol) 0.5 mg PO Q6H PRN PRN Reason: Extreme agitation Last Admin: 10/24/17 20:33 Dose: 0.5 mg Haloperidol Lactate (Haldol) 0.5 mg IM Q6H PRN PRN Reason: Extreme agitation Hydroxychloroquine Sulfate (Plaquenil) 400 mg PO WB COUNTS INCLUDE 234 BEDS AT THE [facility] Last Admin: 10/31/17 08:41 Dose: 400 mg Levothyroxine Sodium (Synthroid) 75 mcg PO ACB COUNTS INCLUDE 234 BEDS AT THE [facility] Last Admin: 10/31/17 08:41 Dose: 75 mcg Lorazepam (Ativan Inj) 0.5 mg IM Q6H PRN PRN Reason: Extreme agitation Lorazepam (Ativan) 0.5 mg PO Q6H PRN PRN Reason: Extreme agitation Last Admin: 10/29/17 18:03 Dose: 0.5 mg Meclizine HCl (Antivert) 12.5 mg PO TID PRN PRN Reason: Dizziness Memantine (Namenda) 10 mg PO BID COUNTS INCLUDE 234 BEDS AT THE [facility] Last Admin: 10/31/17 08:42 Dose: 10 mg Ondansetron HCl (Zofran Po) 8 mg SL Q8H PRN PRN Reason: Nausea &/or vomiting Triamcinolone Acetonide (Kenalog) 1 applic TOP BID PRN PRN Reason: PRN orders Ziprasidone (Geodon) 40 mg PO COUNTS INCLUDE 234 BEDS AT THE [facility] Last Admin: 10/31/17 08:42 Dose: 40 mg Subjective: Patient seen and chart reviewed. Case discussed with treatment team. Patient is sitting in the dayroom and is plesant but concerned about leaving the hospital, getting back to another city, etc. She denies any SI, HI or AVH. Nursing staff report patient is anxious, moreso with male staff, and impulsive at times. She did have an episode of increased anxiety yesterday where she yelled at staff but calmed within ~1 hr. without use of PRNs. Increased Geodon dose seemed to be helpful for evening anxiety. Patient has been adherent with medications. Patient slept 7.5 variably hours overnight. VSS. Appetite is fair. Psychotropic PRNs required in the past 24 hours: None. Start Time: 11:40 Stop Time: 12:00 Mental Status Exam Vitals: Last Vital Signs Temp 97.2 F 10/31/17 08:00 Pulse 73 10/31/17 08:00 Resp 18 10/31/17 08:00 BP 161/66 H 10/31/17 08:00 Pulse Ox 96 10/31/17 08:00 Height: 1.57 m Weight: 71 kg - Mental Status Exam Muscle Strength/Tone: Normal Dressing: Casual Grooming: Good Attitude: Cooperative Motor Activity: Normal Eye Contact: Fair Speech: Slowed Volume: Soft Rhythm: Appropriate Rhythm Orientation: Oriented to person Mood: Neutral Affect: Anxious Rate of Thoughts: Delayed Thought Organization: Confused Associations: Intact Abstract Reasoning: Poor abstract reasoning Thought Content: Paranoia, Other (Anxiety re: family) Perception/Psychotic: Hx psychosis, not current Current Hallucinations: Visual (suspected - recent) Language: Naming Impaired Fund of Knowledge: Poor fund of knowledge Memory: Poor-immediate, Poor-recent Suicidal Ideation: None Homicidal Ideation: None Insight: Poor Judgement: Poor Impulse Control: Poor - Laboratory Result Diagrams: 10/27/17 06:45 10/27/17 06:45 Assessment and Plan (1) Major neurocognitive disorder Problem details: with behavioral disturbance R/O Delirium secondary to unknown etiology Current visit: Yes Status: Acute (2) Hypertension Current visit: Yes Status: Acute (3) Hypothyroidism Current visit: Yes Status: Acute (4) CKD (chronic kidney disease), stage III Current visit: Yes Status: Acute (5) Hyperlipidemia Current visit: Yes Status: Acute Continue current care; monitor effect of increased AM Geodon. Hospital Course Summary Disclaimer: The visit summary below is not to be considered part of the above Progress Note. Hospital Course: Plan - 10/24/17 (Admission) Agree with admission to [facility] for further psychiatric evaluation and treatment per Dr. Ortega and team. Hospitalist service consulted for medical management. Admission labs revealed anemia with hemoglobin at 11.0. Prior labs unavailable. Will monitor hemoglobin periodically throughout admission. Will assess TSH and B12 for additional evaluation given anemia and history of hypothyroidism. CKD, stage III with GFR of 52 on admission. SCr 1.0 on admission. Continue to monitor periodically. Will continue home medications. Continue home Pepcid for GERD and GI protection. History of dizziness/vertigo. Continue antivert as needed for vertigo. Was previously receiving physical therapy for shuffled gait. Monitor closely due to increased fall risk given history of dizziness and gait instability. Provide safe and supportive environment. Encourage patient participation in floor actives. upon discharge, patient's care will be returned to her PCP, Dr. Herrmann and Dr. Scott. 10/26/2017 Some anxiety and restlessness at times. No paranoia noted. Will contact family and discuss switch from Geodon to Risperdal Plan - 10/26/17 Chula is doing well medically. We will repeat labs in AM for stability. She seems to be less suspicious while here- may need consideration for a more monitored living environment. BP has been trending up- may need to add medication if persists. There is an unspecified autoimmune issue- pt. is taking Plaquenil- monitor for s/sx infection while here. TSH is mildly elevated- monitor. Recheck in 4-6 weeks. 10/27/17 Psych: Increase Geodon to 20mg PO q AM and 40mg PO with dinner (must be taken with food). Plan - 10/29/17 Overall, Chula appears to be medically stable. She continues to have visual hallucinations with some anxiety and restlessness. Continue psychiatric care per Dr. Ortega and team. Continue to provide safe and supportive environment. Blood pressure is variable. Will continue to monitor closely to assess if additional anti-hypertensive medication is warranted. Repeat labs on 10/27 revealed stable anemia. Continue to monitor labs periodically throughout admission. Recheck labs on11/03 to monitor blood counts, electrolytes and renal function. 10/29/17 Psych: Recently increased Geodon dosing; continue to monitor response before further medication changes are made. 10/30/17 Psych: Will increase Geodon to 40mg PO BID as it seems to be helpful in decreasing agitation, anxiety.
[2017-11-01] MEDS: LEVOTHYROXINE 75 MCG TABLET PO SCH (06:22)
[2017-11-01] MEDS: HYDROXYCHLOROQUINE 200 MG TABLET PO SCH (09:07)
[2017-11-01] MEDS: FAMOTIDINE 20 MG TABLET PO SCH ×2 (09:08→21:22)
[2017-11-01] MEDS: CHOLESTYRAMINE LIGHT 4 G PACKET PO SCH ×2 (09:09→20:00)
[2017-11-01] MEDS: ZIPRASIDONE 40 MG CAPSULE PO SCH ×2 (09:09→17:17)
[2017-11-01] MEDS: MEMANTINE 10 MG TABLET PO SCH ×2 (09:09→21:22)
--- NOTE | 2017-11-01 10:18 | Neuropsych Progress Note ---
[facility] Subjective Date: 11/01/17 - Sujective/Severity of Illness Medications: Acetaminophen (Tylenol) 325 mg PO Q6H PRN PRN Reason: Pain /Fever Last Admin: 10/26/17 20:30 Dose: 325 mg Cholestyramine Resin (Questran Light) 4 g PO BID [facility] Last Admin: 11/01/17 09:09 Dose: 4 g Famotidine (Pepcid) 20 mg PO BID [facility] Last Admin: 11/01/17 09:08 Dose: 20 mg Guaifenesin/Dextromethorphan (Robitussin Dm) 5 ml PO Q4H PRN PRN Reason: Cough Haloperidol (Haldol) 0.5 mg PO Q6H PRN PRN Reason: Extreme agitation Last Admin: 10/24/17 20:33 Dose: 0.5 mg Haloperidol Lactate (Haldol) 0.5 mg IM Q6H PRN PRN Reason: Extreme agitation Hydroxychloroquine Sulfate (Plaquenil) 400 mg PO WB [facility] Last Admin: 11/01/17 09:07 Dose: 400 mg Levothyroxine Sodium (Synthroid) 75 mcg PO ACB [facility] Last Admin: 11/01/17 06:22 Dose: 75 mcg Lorazepam (Ativan Inj) 0.5 mg IM Q6H PRN PRN Reason: Extreme agitation Lorazepam (Ativan) 0.5 mg PO Q6H PRN PRN Reason: Extreme agitation Last Admin: 10/29/17 18:03 Dose: 0.5 mg Meclizine HCl (Antivert) 12.5 mg PO TID PRN PRN Reason: Dizziness Memantine (Namenda) 10 mg PO BID [facility] Last Admin: 11/01/17 09:09 Dose: 10 mg Ondansetron HCl (Zofran Po) 8 mg SL Q8H PRN PRN Reason: Nausea &/or vomiting Triamcinolone Acetonide (Kenalog) 1 applic TOP BID PRN PRN Reason: PRN orders Ziprasidone (Geodon) 40 mg PO [facility] Last Admin: 11/01/17 09:09 Dose: 40 mg Subjective: Patient seen and chart reviewed. Nursing reports pt can be anxious at times and restless. Sleeping and eating well. On face to face the pt is pleasant but confused. She is only oriented the self. Denies any pain. Reports her mood is "fine". Tolerating meds. Voices no concerns at this time Start Time: 09:45 Stop Time: 10:00 Mental Status Exam Vitals: Last Vital Signs Temp 98.4 F 10/31/17 19:50 Pulse 79 10/31/17 19:50 Resp 20 10/31/17 19:50 BP 129/69 10/31/17 19:50 Pulse Ox 95 10/31/17 19:50 Height: 1.57 m Weight: 68.1 kg - Mental Status Exam Muscle Strength/Tone: Normal Dressing: Casual Grooming: Good Attitude: Cooperative Motor Activity: Normal Eye Contact: Fair Speech: Slowed Volume: Soft Rhythm: Appropriate Rhythm Orientation: Oriented to person Mood: Neutral Rate of Thoughts: Delayed Thought Organization: Confused Associations: Intact Abstract Reasoning: Poor abstract reasoning Thought Content: Paranoia, Other (Anxiety re: family) Perception/Psychotic: Hx psychosis, not current Current Hallucinations: Visual (suspected - recent) Language: Naming Impaired Fund of Knowledge: Poor fund of knowledge Memory: Poor-immediate, Poor-recent Suicidal Ideation: None Homicidal Ideation: None Insight: Poor Judgement: Poor Impulse Control: Poor - Laboratory Result Diagrams: 10/27/17 06:45 10/27/17 06:45 Assessment and Plan (1) Major neurocognitive disorder Problem details: with behavioral disturbance R/O Delirium secondary to unknown etiology Current visit: Yes Status: Acute (2) Hypertension Current visit: Yes Status: Acute (3) Hypothyroidism Current visit: Yes Status: Acute (4) CKD (chronic kidney disease), stage III Current visit: Yes Status: Acute (5) Hyperlipidemia Current visit: Yes Status: Acute Hospital Course Summary Disclaimer: The visit summary below is not to be considered part of the above Progress Note. Hospital Course: Plan - 10/24/17 (Admission) Agree with admission to [facility] for further psychiatric evaluation and treatment per Dr. Ortega and team. Hospitalist service consulted for medical management. Admission labs revealed anemia with hemoglobin at 11.0. Prior labs unavailable. Will monitor hemoglobin periodically throughout admission. Will assess TSH and B12 for additional evaluation given anemia and history of hypothyroidism. CKD, stage III with GFR of 52 on admission. SCr 1.0 on admission. Continue to monitor periodically. Will continue home medications. Continue home Pepcid for GERD and GI protection. History of dizziness/vertigo. Continue antivert as needed for vertigo. Was previously receiving physical therapy for shuffled gait. Monitor closely due to increased fall risk given history of dizziness and gait instability. Provide safe and supportive environment. Encourage patient participation in floor actives. upon discharge, patient's care will be returned to her PCP, Dr. Herrmann and Dr. Scott. 10/26/2017 Some anxiety and restlessness at times. No paranoia noted. Will contact family and discuss switch from Geodon to Risperdal Plan - 10/26/17 Chula is doing well medically. We will repeat labs in AM for stability. She seems to be less suspicious while here- may need consideration for a more monitored living environment. BP has been trending up- may need to add medication if persists. There is an unspecified autoimmune issue- pt. is taking Plaquenil- monitor for s/sx infection while here. TSH is mildly elevated- monitor. Recheck in 4-6 weeks. 10/27/17 Psych: Increase Geodon to 20mg PO q AM and 40mg PO with dinner (must be taken with food). Plan - 10/29/17 Overall, Chula appears to be medically stable. She continues to have visual hallucinations with some anxiety and restlessness. Continue psychiatric care per Dr. Ortega and team. Continue to provide safe and supportive environment. Blood pressure is variable. Will continue to monitor closely to assess if additional anti-hypertensive medication is warranted. Repeat labs on 10/27 revealed stable anemia. Continue to monitor labs periodically throughout admission. Recheck labs on11/03 to monitor blood counts, electrolytes and renal function. 10/29/17 Psych: Recently increased Geodon dosing; continue to monitor response before further medication changes are made. 10/30/17 Psych: Will increase Geodon to 40mg PO BID as it seems to be helpful in decreasing agitation, anxiety. 11/01/2017 Remains anxious and restless at times. Continue current care
[2017-11-02] MEDS: LEVOTHYROXINE 75 MCG TABLET PO SCH (05:55)
[2017-11-02] MEDS: ZIPRASIDONE 40 MG CAPSULE PO SCH ×2 (08:16→17:42)
[2017-11-02] MEDS: CHOLESTYRAMINE LIGHT 4 G PACKET PO SCH ×2 (08:16→19:59)
[2017-11-02] MEDS: FAMOTIDINE 20 MG TABLET PO SCH ×2 (08:58→19:59)
[2017-11-02] MEDS: HYDROXYCHLOROQUINE 200 MG TABLET PO SCH (08:58)
[2017-11-02] MEDS: MEMANTINE 10 MG TABLET PO SCH ×2 (08:58→19:59)
--- NOTE | 2017-11-02 11:38 | Neuropsych Progress Note ---
[facility] Subjective Date: 11/02/17 - Sujective/Severity of Illness Medications: Acetaminophen (Tylenol) 325 mg PO Q6H PRN PRN Reason: Pain /Fever Last Admin: 10/26/17 20:30 Dose: 325 mg Cholestyramine Resin (Questran Light) 4 g PO BID [facility] Last Admin: 11/02/17 08:16 Dose: 4 g Famotidine (Pepcid) 20 mg PO BID [facility] Last Admin: 11/02/17 08:58 Dose: 20 mg Guaifenesin/Dextromethorphan (Robitussin Dm) 5 ml PO Q4H PRN PRN Reason: Cough Haloperidol (Haldol) 0.5 mg PO Q6H PRN PRN Reason: Extreme agitation Last Admin: 10/24/17 20:33 Dose: 0.5 mg Haloperidol Lactate (Haldol) 0.5 mg IM Q6H PRN PRN Reason: Extreme agitation Hydroxychloroquine Sulfate (Plaquenil) 400 mg PO WB [facility] Last Admin: 11/02/17 08:58 Dose: 400 mg Levothyroxine Sodium (Synthroid) 75 mcg PO ACB [facility] Last Admin: 11/02/17 05:55 Dose: 75 mcg Lorazepam (Ativan Inj) 0.5 mg IM Q6H PRN PRN Reason: Extreme agitation Lorazepam (Ativan) 0.5 mg PO Q6H PRN PRN Reason: Extreme agitation Last Admin: 10/29/17 18:03 Dose: 0.5 mg Meclizine HCl (Antivert) 12.5 mg PO TID PRN PRN Reason: Dizziness Memantine (Namenda) 10 mg PO BID [facility] Last Admin: 11/02/17 08:58 Dose: 10 mg Ondansetron HCl (Zofran Po) 8 mg SL Q8H PRN PRN Reason: Nausea &/or vomiting Triamcinolone Acetonide (Kenalog) 1 applic TOP BID PRN PRN Reason: PRN orders Ziprasidone (Geodon) 40 mg PO [facility] Last Admin: 11/02/17 08:16 Dose: 40 mg Subjective: Patient seen and chart reviewed. Nursing reports pt is doing well. Sleeping well and has a good appetite. On face to face the pt states she is doing well. She is pleasant but confused. Only oriented to self. Denies pain. Tolerating meds Start Time: 10:30 Stop Time: 10:45 Mental Status Exam Vitals: Last Vital Signs Temp 97.0 F 11/02/17 08:00 Pulse 71 11/02/17 08:00 Resp 20 11/02/17 08:00 BP 147/76 H 11/02/17 08:00 Pulse Ox 94 11/02/17 08:00 Height: 1.57 m Weight: 68.1 kg - Mental Status Exam Muscle Strength/Tone: Normal Dressing: Casual Grooming: Good Attitude: Cooperative Motor Activity: Normal Eye Contact: Fair Speech: Slowed Volume: Soft Rhythm: Appropriate Rhythm Orientation: Oriented to person Mood: Neutral Rate of Thoughts: Delayed Thought Organization: Confused Associations: Intact Abstract Reasoning: Poor abstract reasoning Thought Content: Paranoia, Other (Anxiety re: family) Perception/Psychotic: Hx psychosis, not current Current Hallucinations: Visual (suspected - recent) Language: Naming Impaired Fund of Knowledge: Poor fund of knowledge Memory: Poor-immediate, Poor-recent Suicidal Ideation: None Homicidal Ideation: None Insight: Poor Judgement: Poor Impulse Control: Poor - Laboratory Result Diagrams: 10/27/17 06:45 10/27/17 06:45 Assessment and Plan (1) Major neurocognitive disorder Problem details: with behavioral disturbance R/O Delirium secondary to unknown etiology Current visit: Yes Status: Acute (2) Hypertension Current visit: Yes Status: Acute (3) Hypothyroidism Current visit: Yes Status: Acute (4) CKD (chronic kidney disease), stage III Current visit: Yes Status: Acute (5) Hyperlipidemia Current visit: Yes Status: Acute Hospital Course Summary Disclaimer: The visit summary below is not to be considered part of the above Progress Note. Hospital Course: Plan - 10/24/17 (Admission) Agree with admission to [facility] for further psychiatric evaluation and treatment per Dr. Ortega and team. Hospitalist service consulted for medical management. Admission labs revealed anemia with hemoglobin at 11.0. Prior labs unavailable. Will monitor hemoglobin periodically throughout admission. Will assess TSH and B12 for additional evaluation given anemia and history of hypothyroidism. CKD, stage III with GFR of 52 on admission. SCr 1.0 on admission. Continue to monitor periodically. Will continue home medications. Continue home Pepcid for GERD and GI protection. History of dizziness/vertigo. Continue antivert as needed for vertigo. Was previously receiving physical therapy for shuffled gait. Monitor closely due to increased fall risk given history of dizziness and gait instability. Provide safe and supportive environment. Encourage patient participation in floor actives. upon discharge, patient's care will be returned to her PCP, Dr. Herrmann and Dr. Scott. 10/26/2017 Some anxiety and restlessness at times. No paranoia noted. Will contact family and discuss switch from Geodon to Risperdal Plan - 10/26/17 Chula is doing well medically. We will repeat labs in AM for stability. She seems to be less suspicious while here- may need consideration for a more monitored living environment. BP has been trending up- may need to add medication if persists. There is an unspecified autoimmune issue- pt. is taking Plaquenil- monitor for s/sx infection while here. TSH is mildly elevated- monitor. Recheck in 4-6 weeks. 10/27/17 Psych: Increase Geodon to 20mg PO q AM and 40mg PO with dinner (must be taken with food). Plan - 10/29/17 Overall, Chula appears to be medically stable. She continues to have visual hallucinations with some anxiety and restlessness. Continue psychiatric care per Dr. Ortega and team. Continue to provide safe and supportive environment. Blood pressure is variable. Will continue to monitor closely to assess if additional anti-hypertensive medication is warranted. Repeat labs on 10/27 revealed stable anemia. Continue to monitor labs periodically throughout admission. Recheck labs on11/03 to monitor blood counts, electrolytes and renal function. 10/29/17 Psych: Recently increased Geodon dosing; continue to monitor response before further medication changes are made. 10/30/17 Psych: Will increase Geodon to 40mg PO BID as it seems to be helpful in decreasing agitation, anxiety. 11/01/2017 Remains anxious and restless at times. Continue current care 11/02/2017 Remains confused but less anxious and restless. Continue current care
[2017-11-02] MEDS: ACETAMINOPHEN 325 MG TABLET PO PRN ×2 (17:04→20:03)
[2017-11-03] MEDS: HYDROXYCHLOROQUINE 200 MG TABLET PO SCH (09:18)
[2017-11-03] MEDS: ZIPRASIDONE 40 MG CAPSULE PO SCH ×2 (09:18→18:14)
[2017-11-03] MEDS: CHOLESTYRAMINE LIGHT 4 G PACKET PO SCH ×2 (09:18→20:08)
[2017-11-03] MEDS: MEMANTINE 10 MG TABLET PO SCH ×2 (09:19→20:08)
[2017-11-03] MEDS: FAMOTIDINE 20 MG TABLET PO SCH ×2 (09:19→20:08)
[2017-11-03] MEDS: LEVOTHYROXINE 75 MCG TABLET PO SCH (09:19)
[2017-11-03] MEDS ORDERED: ZIPRASIDONE 20 MG CAPSULE PO SCH (12:00)
--- NOTE | 2017-11-03 14:13 | Progress Note ---
- Date 11/03/17 Subjective: Chula is seen today while sitting in the day room. She is alert and pleasant during examination. She reports she is worried about her as he has been ill recently. She denies having any chest pain, shortness of breath or GI complaints. Objective Vital signs: Temperature 97.6 F 11/03/17 08:00 Pulse Rate 74 11/03/17 08:00 Respiratory Rate 16 11/03/17 08:00 Blood Pressure 146/97 H 11/03/17 08:00 Pulse Oximetry 96 11/03/17 08:00 Rhythm: Normal Sinus Rhythm Height/Weight/BMI: Weight 68.1 kg - Constitutional Present: no acute distress, well nourished, well developed - Routine HEENT Exam Eye: Present: EOMI ENT: Present: mucous membranes moist, dentition normal - Routine Respiratory Exam Present: CTA bilaterally. Absent: wheezes - Routine Cardiovascular Exam Present: RRR, S1, S2. Absent: murmur - Routine Abdominal Exam Present: soft, normoactive bowel sounds, non distended. Absent: tenderness - Routine Extremities Exam Present: normal capillary refill - Routine Skin Exam Present: dry, warm - Routine Neurological Exam Present: alert, CN II-XII intact - Routine Lymphatic Exam Lymphatic: Absent: adenopathy - Routine Psychiatric Exam Present: cooperative Results - Labs CBC & Chem 7: 11/03/17 07:05 11/03/17 07:05 Assessment and Plan (1) Major neurocognitive disorder Problem details: with behavioral disturbance R/O Delirium secondary to unknown etiology Current visit: Yes Status: Acute Assessment and Plan: Assessment Major neurocognitive disorder with behavioral disturbance and paranoia. Anemia, unspecified - present on admission. Dementia. Hypertension. GERD. Depression. Paranoid disorder. Schizophrenia. Chronic kidney disease, stage III. Hypothyroidism. Hyperlipidemia. History of hypocalcemia. History of vertigo/dizziness. Gait instability. Plan - 11/03 Continued psychiatric care per Dr. Ortega and team. Continue to provide safe and supportive environment. Overall blood pressure is well controlled. Chart reviewed- No current concerns from nursing staff - Physician Narrative Narrative: Date: 11/03/17 Time: 1409 Hospital Course Summary Disclaimer: The visit summary below is not to be considered part of the above Progress Note. Hospital Course: Plan - 10/24/17 (Admission) Agree with admission to [facility] for further psychiatric evaluation and treatment per Dr. Ortega and team. Hospitalist service consulted for medical management. Admission labs revealed anemia with hemoglobin at 11.0. Prior labs unavailable. Will monitor hemoglobin periodically throughout admission. Will assess TSH and B12 for additional evaluation given anemia and history of hypothyroidism. CKD, stage III with GFR of 52 on admission. SCr 1.0 on admission. Continue to monitor periodically. Will continue home medications. Continue home Pepcid for GERD and GI protection. History of dizziness/vertigo. Continue antivert as needed for vertigo. Was previously receiving physical therapy for shuffled gait. Monitor closely due to increased fall risk given history of dizziness and gait instability. Provide safe and supportive environment. Encourage patient participation in floor actives. upon discharge, patient's care will be returned to her PCP, Dr. Herrmann and Dr. Scott. 10/26/2017 Some anxiety and restlessness at times. No paranoia noted. Will contact family and discuss switch from Geodon to Risperdal Plan - 10/26/17 Chula is doing well medically. We will repeat labs in AM for stability. She seems to be less suspicious while here- may need consideration for a more monitored living environment. BP has been trending up- may need to add medication if persists. There is an unspecified autoimmune issue- pt. is taking Plaquenil- monitor for s/sx infection while here. TSH is mildly elevated- monitor. Recheck in 4-6 weeks. 10/27/17 Psych: Increase Geodon to 20mg PO q AM and 40mg PO with dinner (must be taken with food). Plan - 10/29/17 Overall, Chula appears to be medically stable. She continues to have visual hallucinations with some anxiety and restlessness. Continue psychiatric care per Dr. Ortega and team. Continue to provide safe and supportive environment. Blood pressure is variable. Will continue to monitor closely to assess if additional anti-hypertensive medication is warranted. Repeat labs on 10/27 revealed stable anemia. Continue to monitor labs periodically throughout admission. Recheck labs on11/03 to monitor blood counts, electrolytes and renal function. 10/29/17 Psych: Recently increased Geodon dosing; continue to monitor response before further medication changes are made. 10/30/17 Psych: Will increase Geodon to 40mg PO BID as it seems to be helpful in decreasing agitation, anxiety. 11/01/2017 Remains anxious and restless at times. Continue current care 11/02/2017 Remains confused but less anxious and restless. Continue current care 11/03- Overall medically stable. No medical concerns currently.
--- NOTE | 2017-11-03 14:27 | Neuropsych Progress Note ---
[facility] Subjective Date: 11/03/17 - Sujective/Severity of Illness Medications: Acetaminophen (Tylenol) 325 - 650 mg PO Q6H PRN PRN Reason: Pain /Fever Last Admin: 11/02/17 20:03 Dose: 650 mg Cholestyramine Resin (Questran Light) 4 g PO BID [facility] Last Admin: 11/03/17 09:18 Dose: 4 g Famotidine (Pepcid) 20 mg PO BID [facility] Last Admin: 11/03/17 09:19 Dose: 20 mg Guaifenesin/Dextromethorphan (Robitussin Dm) 5 ml PO Q4H PRN PRN Reason: Cough Haloperidol (Haldol) 0.5 mg PO Q6H PRN PRN Reason: Extreme agitation Last Admin: 10/24/17 20:33 Dose: 0.5 mg Haloperidol Lactate (Haldol) 0.5 mg IM Q6H PRN PRN Reason: Extreme agitation Hydroxychloroquine Sulfate (Plaquenil) 400 mg PO WB [facility] Last Admin: 11/03/17 09:18 Dose: 400 mg Levothyroxine Sodium (Synthroid) 75 mcg PO ACB [facility] Last Admin: 11/03/17 09:19 Dose: 75 mcg Lorazepam (Ativan Inj) 0.5 mg IM Q6H PRN PRN Reason: Extreme agitation Lorazepam (Ativan) 0.5 mg PO Q6H PRN PRN Reason: Extreme agitation Last Admin: 10/29/17 18:03 Dose: 0.5 mg Meclizine HCl (Antivert) 12.5 mg PO TID PRN PRN Reason: Dizziness Memantine (Namenda) 10 mg PO BID [facility] Last Admin: 11/03/17 09:19 Dose: 10 mg Ondansetron HCl (Zofran Po) 8 mg SL Q8H PRN PRN Reason: Nausea &/or vomiting Triamcinolone Acetonide (Kenalog) 1 applic TOP BID PRN PRN Reason: PRN orders Ziprasidone (Geodon) 40 mg PO [facility] Last Admin: 11/03/17 09:18 Dose: 40 mg Ziprasidone (Geodon) 20 mg PO 12 [facility] Last Admin: 11/03/17 12:47 Dose: 20 mg Subjective: Patient seen and chart reviewed. Case discussed with treatment team. On interview, patient reports her mood is good and she feels well physically. She denies worrying about anything. Patient denies any SI, HI or AVH. Patient denies any adverse side effects related to psychotropic medications. Nursing staff report patient has been pleasant but becomes a bit anxious/ restless in the afternoons. Patient has been adherent with medications. Patient slept 8.25 hours overnight. VSS. Patient is eating well. Psychotropic PRNs required in the past 24 hours: none. Start Time: 10:00 Stop Time: 10:20 Mental Status Exam Vitals: Last Vital Signs Temp 97.6 F 11/03/17 08:00 Pulse 74 11/03/17 08:00 Resp 16 11/03/17 08:00 BP 146/97 H 11/03/17 08:00 Pulse Ox 96 11/03/17 08:00 Height: 1.57 m Weight: 68.1 kg - Mental Status Exam Muscle Strength/Tone: Normal Dressing: Casual Grooming: Good Attitude: Cooperative Motor Activity: Normal Eye Contact: Fair Speech: Slowed Volume: Soft Rhythm: Appropriate Rhythm Orientation: Disoriented to time, Disoriented to place, Disoriented to situation , Oriented to person Mood: Euthymic Affect: Anxious (at times) Rate of Thoughts: Delayed Thought Organization: Confused Associations: Intact Abstract Reasoning: Poor abstract reasoning Thought Content: Other (Anxiety re: family) Perception/Psychotic: Hx psychosis, not current Language: Naming Impaired Fund of Knowledge: Poor fund of knowledge Memory: Poor-immediate, Poor-recent Suicidal Ideation: Denies Homicidal Ideation: Denies Insight: Impaired Judgement: Impaired Impulse Control: Fair - Laboratory Result Diagrams: 11/03/17 07:05 11/03/17 07:05 Laboratory Results - last 24 hr 11/03/17 11/03/17 07:05 07:05 WBC 4.3 L RBC 3.69 L Hgb 11.2 L Hct 34.9 L MCV 94.6 MCH 30.4 MCHC 32.1 RDW Std Deviation 45.4 Plt Count 259 MPV 10.0 Immature Gran % (Auto) 0.5 Neut % (Auto) 43.5 Lymph % (Auto) 35.2 Polk % (Auto) 13.8 H Eos % (Auto) 6.1 H Baso % (Auto) 0.9 Neut # (Auto) 1.9 Lymph # (Auto) 1.5 Polk # (Auto) 0.6 Eos # (Auto) 0.3 Baso # (Auto) 0.0 Abs Immat Gran (auto) 0.02 Turbidity < 20 Sodium 142 Potassium 4.1 Chloride 109 H Carbon Dioxide 24 Anion Gap 9 BUN 16.0 Creatinine 0.8 GFR Calculation 68 BUN/Creatinine Ratio 20 Glucose 99 Calculated Osmolality 274 Calcium 8.8 Icterus Index < 2 Specimen Hemolysis < 15 Assessment and Plan (1) Major neurocognitive disorder Problem details: with behavioral disturbance R/O Delirium secondary to unknown etiology Current visit: Yes Status: Acute (2) Hypertension Current visit: Yes Status: Acute (3) Hypothyroidism Current visit: Yes Status: Acute (4) CKD (chronic kidney disease), stage III Current visit: Yes Status: Acute (5) Hyperlipidemia Current visit: Yes Status: Acute Will add lunch-time dose of Geodon 20mg to target afternoon anxiety; monitor response. Hospital Course Summary Disclaimer: The visit summary below is not to be considered part of the above Progress Note. Hospital Course: Plan - 10/24/17 (Admission) Agree with admission to [facility] for further psychiatric evaluation and treatment per Dr. Ortega and team. Hospitalist service consulted for medical management. Admission labs revealed anemia with hemoglobin at 11.0. Prior labs unavailable. Will monitor hemoglobin periodically throughout admission. Will assess TSH and B12 for additional evaluation given anemia and history of hypothyroidism. CKD, stage III with GFR of 52 on admission. SCr 1.0 on admission. Continue to monitor periodically. Will continue home medications. Continue home Pepcid for GERD and GI protection. History of dizziness/vertigo. Continue antivert as needed for vertigo. Was previously receiving physical therapy for shuffled gait. Monitor closely due to increased fall risk given history of dizziness and gait instability. Provide safe and supportive environment. Encourage patient participation in floor actives. upon discharge, patient's care will be returned to her PCP, Dr. Herrmann and Dr. Scott. 10/26/2017 Some anxiety and restlessness at times. No paranoia noted. Will contact family and discuss switch from Geodon to Risperdal Plan - 10/26/17 Chula is doing well medically. We will repeat labs in AM for stability. She seems to be less suspicious while here- may need consideration for a more monitored living environment. BP has been trending up- may need to add medication if persists. There is an unspecified autoimmune issue- pt. is taking Plaquenil- monitor for s/sx infection while here. TSH is mildly elevated- monitor. Recheck in 4-6 weeks. 10/27/17 Psych: Increase Geodon to 20mg PO q AM and 40mg PO with dinner (must be taken with food). Plan - 10/29/17 Overall, Chula appears to be medically stable. She continues to have visual hallucinations with some anxiety and restlessness. Continue psychiatric care per Dr. Ortega and team. Continue to provide safe and supportive environment. Blood pressure is variable. Will continue to monitor closely to assess if additional anti-hypertensive medication is warranted. Repeat labs on 10/27 revealed stable anemia. Continue to monitor labs periodically throughout admission. Recheck labs on11/03 to monitor blood counts, electrolytes and renal function. 10/29/17 Psych: Recently increased Geodon dosing; continue to monitor response before further medication changes are made. 10/30/17 Psych: Will increase Geodon to 40mg PO BID as it seems to be helpful in decreasing agitation, anxiety. 11/01/2017 Remains anxious and restless at times. Continue current care 11/02/2017 Remains confused but less anxious and restless. Continue current care 11/03- Overall medically stable. No medical concerns currently. 11/03/17 Psych: Will add lunch-time dose of Geodon 20mg to target afternoon anxiety; monitor response. Monitor to ensure restlessness is not akathisia due to Geodon.
[2017-11-04] MEDS: HYDROXYCHLOROQUINE 200 MG TABLET PO SCH (08:19)
[2017-11-04] MEDS: LEVOTHYROXINE 75 MCG TABLET PO SCH (08:19)
[2017-11-04] MEDS: ZIPRASIDONE 40 MG CAPSULE PO SCH ×2 (08:19→17:09)
[2017-11-04] MEDS: FAMOTIDINE 20 MG TABLET PO SCH ×2 (08:20→20:43)
[2017-11-04] MEDS: MEMANTINE 10 MG TABLET PO SCH ×2 (08:20→20:43)
[2017-11-04] MEDS: CHOLESTYRAMINE LIGHT 4 G PACKET PO SCH ×2 (08:20→22:00)
[2017-11-04] MEDS: LORazepam 0.5 MG TABLET PO PRN (17:09)
[2017-11-04] MEDS: AMLODIPINE 2.5 MG TABLET PO SCH (17:09)
--- NOTE | 2017-11-04 18:15 | Neuropsych Progress Note ---
[facility] Subjective Date: 11/04/17 - Sujective/Severity of Illness Medications: Acetaminophen (Tylenol) 325 - 650 mg PO Q6H PRN PRN Reason: Pain /Fever Last Admin: 11/02/17 20:03 Dose: 650 mg Amlodipine Besylate (Norvasc) 2.5 mg PO DAILY [facility] Last Admin: 11/04/17 17:09 Dose: 2.5 mg Cholestyramine Resin (Questran Light) 4 g PO BID [facility] Last Admin: 11/04/17 08:20 Dose: 4 g Famotidine (Pepcid) 20 mg PO BID [facility] Last Admin: 11/04/17 08:20 Dose: 20 mg Guaifenesin/Dextromethorphan (Robitussin Dm) 5 ml PO Q4H PRN PRN Reason: Cough Haloperidol (Haldol) 0.5 mg PO Q6H PRN PRN Reason: Extreme agitation Last Admin: 10/24/17 20:33 Dose: 0.5 mg Haloperidol Lactate (Haldol) 0.5 mg IM Q6H PRN PRN Reason: Extreme agitation Hydroxychloroquine Sulfate (Plaquenil) 400 mg PO WB [facility] Last Admin: 11/04/17 08:19 Dose: 400 mg Levothyroxine Sodium (Synthroid) 75 mcg PO ACB [facility] Last Admin: 11/04/17 08:19 Dose: 75 mcg Lorazepam (Ativan Inj) 0.5 mg IM Q6H PRN PRN Reason: Extreme agitation Lorazepam (Ativan) 0.5 mg PO Q6H PRN PRN Reason: Extreme agitation Last Admin: 11/04/17 17:09 Dose: 0.5 mg Meclizine HCl (Antivert) 12.5 mg PO TID PRN PRN Reason: Dizziness Memantine (Namenda) 10 mg PO BID [facility] Last Admin: 11/04/17 08:20 Dose: 10 mg Ondansetron HCl (Zofran Po) 8 mg SL Q8H PRN PRN Reason: Nausea &/or vomiting Oseltamivir Phosphate (Tamiflu) 30 mg PO DAILY [facility] Stop: 11/09/17 09:01 Last Admin: 11/04/17 08:20 Dose: 30 mg Triamcinolone Acetonide (Kenalog) 1 applic TOP BID PRN PRN Reason: PRN orders Ziprasidone (Geodon) 40 mg PO [facility] Last Admin: 11/04/17 17:09 Dose: 40 mg Subjective: Patient seen and chart reviewed. Case discussed with treatment team. On interview, patient reports her mood is good. She denies worrying about anything but reportedly does ask repetitive questions, though she is more redirectable from admission and has not been crying. Patient denies any SI, HI or AVH. Patient denies any adverse side effects related to psychotropic medications - however, did seem to have a mild rigidity on physical exam. She denied feeling it was problematic but I would like to limit the Geodon dose due to this. Nursing staff report patient has been pleasant but becomes a bit anxious/ restless in the afternoons. Patient has been adherent with medications. Patient slept 8 hours overnight. VSS. Patient is eating well. Psychotropic PRNs required in the past 24 hours: none. Start Time: 10:00 Stop Time: 10:20 Mental Status Exam Vitals: Last Vital Signs Temp 98.0 F 11/04/17 15:38 Pulse 75 11/04/17 15:38 Resp 16 11/04/17 15:38 BP 153/71 H 11/04/17 15:38 Pulse Ox 96 11/04/17 15:38 Height: 1.57 m Weight: 68.1 kg - Mental Status Exam Muscle Strength/Tone: Normal Dressing: Casual Grooming: Good Attitude: Cooperative Motor Activity: Normal Eye Contact: Fair Speech: Slowed Volume: Soft Rhythm: Appropriate Rhythm Orientation: Disoriented to time, Disoriented to place, Disoriented to situation , Oriented to person Mood: Euthymic Affect: Relaxed (can be anxious at tiems) Rate of Thoughts: Delayed Thought Organization: Confused Associations: Intact Abstract Reasoning: Poor abstract reasoning Thought Content: Other (Anxiety re: family) Perception/Psychotic: Hx psychosis, not current Current Hallucinations: Visual (suspected - recent) Language: Naming Impaired Fund of Knowledge: Poor fund of knowledge Memory: Poor-immediate, Poor-recent Suicidal Ideation: Denies Homicidal Ideation: Denies Insight: Impaired Judgement: Impaired Impulse Control: Fair - Laboratory Result Diagrams: 11/03/17 07:05 11/03/17 07:05 Assessment and Plan (1) Major neurocognitive disorder Problem details: with behavioral disturbance Current visit: Yes Status: Acute (2) Hypertension Current visit: Yes Status: Acute (3) Hypothyroidism Current visit: Yes Status: Acute (4) CKD (chronic kidney disease), stage III Current visit: Yes Status: Acute (5) Hyperlipidemia Current visit: Yes Status: Acute Will contact DPOA today regarding starting SSRI to target anxiety (likely Lexapro). Hospital Course Summary Disclaimer: The visit summary below is not to be considered part of the above Progress Note. Hospital Course: Plan - 10/24/17 (Admission) Agree with admission to [facility] for further psychiatric evaluation and treatment per Dr. Ortega and team. Hospitalist service consulted for medical management. Admission labs revealed anemia with hemoglobin at 11.0. Prior labs unavailable. Will monitor hemoglobin periodically throughout admission. Will assess TSH and B12 for additional evaluation given anemia and history of hypothyroidism. CKD, stage III with GFR of 52 on admission. SCr 1.0 on admission. Continue to monitor periodically. Will continue home medications. Continue home Pepcid for GERD and GI protection. History of dizziness/vertigo. Continue antivert as needed for vertigo. Was previously receiving physical therapy for shuffled gait. Monitor closely due to increased fall risk given history of dizziness and gait instability. Provide safe and supportive environment. Encourage patient participation in floor actives. upon discharge, patient's care will be returned to her PCP, Dr. Herrmann and Dr. Scott. 10/26/2017 Some anxiety and restlessness at times. No paranoia noted. Will contact family and discuss switch from Geodon to Risperdal Plan - 10/26/17 Chula is doing well medically. We will repeat labs in AM for stability. She seems to be less suspicious while here- may need consideration for a more monitored living environment. BP has been trending up- may need to add medication if persists. There is an unspecified autoimmune issue- pt. is taking Plaquenil- monitor for s/sx infection while here. TSH is mildly elevated- monitor. Recheck in 4-6 weeks. 10/27/17 Psych: Increase Geodon to 20mg PO q AM and 40mg PO with dinner (must be taken with food). Plan - 10/29/17 Overall, Chula appears to be medically stable. She continues to have visual hallucinations with some anxiety and restlessness. Continue psychiatric care per Dr. Ortega and team. Continue to provide safe and supportive environment. Blood pressure is variable. Will continue to monitor closely to assess if additional anti-hypertensive medication is warranted. Repeat labs on 10/27 revealed stable anemia. Continue to monitor labs periodically throughout admission. Recheck labs on11/03 to monitor blood counts, electrolytes and renal function. 10/29/17 Psych: Recently increased Geodon dosing; continue to monitor response before further medication changes are made. 10/30/17 Psych: Will increase Geodon to 40mg PO BID as it seems to be helpful in decreasing agitation, anxiety. 11/01/2017 Remains anxious and restless at times. Continue current care 11/02/2017 Remains confused but less anxious and restless. Continue current care 11/03- Overall medically stable. No medical concerns currently. 11/03/17 Psych: Will add lunch-time dose of Geodon 20mg to target afternoon anxiety; monitor response. Monitor to ensure restlessness is not akathisia due to Geodon. 11/04/17 Psych: Will contact DPOA today regarding starting SSRI to target anxiety (likely Lexapro).
[2017-11-05] MEDS: LEVOTHYROXINE 75 MCG TABLET PO SCH (06:07)
[2017-11-05] MEDS: CHOLESTYRAMINE LIGHT 4 G PACKET PO SCH ×2 (08:00→19:51)
[2017-11-05] MEDS: HYDROXYCHLOROQUINE 200 MG TABLET PO SCH (08:00)
[2017-11-05] MEDS: AMLODIPINE 2.5 MG TABLET PO SCH (08:01)
[2017-11-05] MEDS: ZIPRASIDONE 40 MG CAPSULE PO SCH ×3 (08:01→17:21)
[2017-11-05] MEDS: MEMANTINE 10 MG TABLET PO SCH ×2 (08:01→19:52)
[2017-11-05] MEDS: FAMOTIDINE 20 MG TABLET PO SCH ×2 (08:01→19:51)
[2017-11-05] MEDS: ESCITALOPRAM 10 MG TABLET PO SCH (16:22)
--- NOTE | 2017-11-05 17:30 | Progress Note ---
- Date 11/05/17 Subjective: Chula is sitting in the recliner in the day room and denies any complaint or concerns. Nursing reports that she continues ask the same question over and over but is redirectible and seems to be showing improvements. She denies any chest pain or shortness of breath. Appetite is stable and bowels are moving. Objective Vital signs: Temperature 97.5 F 11/05/17 16:00 Pulse Rate 71 11/05/17 16:00 Respiratory Rate 18 11/05/17 16:00 Blood Pressure 127/70 11/05/17 16:00 Pulse Oximetry 99 11/05/17 16:00 Rhythm: Normal Sinus Rhythm Height/Weight/BMI: Weight 150 lb 2.157 oz - Constitutional Present: no acute distress, well nourished, well developed, cooperative - Routine HEENT Exam Head: Present: normocephalic, atraumatic Eye: Present: PERRL. Absent: conjunctival icterus ENT: Present: mucous membranes moist - Routine Respiratory Exam Present: CTA bilaterally - Routine Cardiovascular Exam Present: RRR, S1, S2 - Routine Abdominal Exam Present: soft, normoactive bowel sounds, non distended, non tender - Routine Extremities Exam Present: no edema, non tender, full ROM, pulses intact - Routine Back/Spine/Pelvis Exam Back/Spine: Present: full ROM. Absent: vertebral tenderness - Routine Musculoskeletal Exam Musculoskeletal: Present: moving extremities well - Routine Skin Exam Present: intact, warm. Absent: jaundice - Routine Neurological Exam Present: alert, moving all extremities, normal speech - Routine Lymphatic Exam Lymphatic: Absent: lymphedema - Routine Psychiatric Exam Present: cooperative Results - Labs CBC & Chem 7: 11/03/17 07:05 11/03/17 07:05 Assessment and Plan (1) Major neurocognitive disorder Problem details: with behavioral disturbance Current visit: Yes Status: Acute Assessment and Plan: Assessment Major neurocognitive disorder with behavioral disturbance and paranoia. Anemia, unspecified - present on admission. Dementia. Hypertension. GERD. Depression. Paranoid disorder. Schizophrenia. Chronic kidney disease, stage III. Hypothyroidism. Hyperlipidemia. History of hypocalcemia. History of vertigo/dizziness. Gait instability. Plan - 11/05/17 Continued psychiatric care per Dr. Ortega and team. Continue to provide safe and supportive environment. Overall, appears medically stable. Labs on 11/03/17 were stable. Chart reviewed- No current concerns from nursing staff. Resuscitation Status: Do Not Resuscitate - Time spent with patient Time with patient PN: 25 minutes - Physician Narrative Physician: Valeriano Donaldson MD Narrative: Date: 11/05/17 Time: 1727 Hospital Course Summary Disclaimer: The visit summary below is not to be considered part of the above Progress Note. Hospital Course: Plan - 10/24/17 (Admission) Agree with admission to [facility] for further psychiatric evaluation and treatment per Dr. Ortega and team. Hospitalist service consulted for medical management. Admission labs revealed anemia with hemoglobin at 11.0. Prior labs unavailable. Will monitor hemoglobin periodically throughout admission. Will assess TSH and B12 for additional evaluation given anemia and history of hypothyroidism. CKD, stage III with GFR of 52 on admission. SCr 1.0 on admission. Continue to monitor periodically. Will continue home medications. Continue home Pepcid for GERD and GI protection. History of dizziness/vertigo. Continue antivert as needed for vertigo. Was previously receiving physical therapy for shuffled gait. Monitor closely due to increased fall risk given history of dizziness and gait instability. Provide safe and supportive environment. Encourage patient participation in floor actives. upon discharge, patient's care will be returned to her PCP, Dr. Herrmann and Dr. Scott. 10/26/2017 Some anxiety and restlessness at times. No paranoia noted. Will contact family and discuss switch from Geodon to Risperdal Plan - 10/26/17 Chula is doing well medically. We will repeat labs in AM for stability. She seems to be less suspicious while here- may need consideration for a more monitored living environment. BP has been trending up- may need to add medication if persists. There is an unspecified autoimmune issue- pt. is taking Plaquenil- monitor for s/sx infection while here. TSH is mildly elevated- monitor. Recheck in 4-6 weeks. 10/27/17 Psych: Increase Geodon to 20mg PO q AM and 40mg PO with dinner (must be taken with food). Plan - 10/29/17 Overall, Chula appears to be medically stable. She continues to have visual hallucinations with some anxiety and restlessness. Continue psychiatric care per Dr. Ortega and team. Continue to provide safe and supportive environment. Blood pressure is variable. Will continue to monitor closely to assess if additional anti-hypertensive medication is warranted. Repeat labs on 10/27 revealed stable anemia. Continue to monitor labs periodically throughout admission. Recheck labs on11/03 to monitor blood counts, electrolytes and renal function. 10/29/17 Psych: Recently increased Geodon dosing; continue to monitor response before further medication changes are made. 10/30/17 Psych: Will increase Geodon to 40mg PO BID as it seems to be helpful in decreasing agitation, anxiety. 11/01/2017 Remains anxious and restless at times. Continue current care 11/02/2017 Remains confused but less anxious and restless. Continue current care 11/03- Overall medically stable. No medical concerns currently. 11/03/17 Psych: Will add lunch-time dose of Geodon 20mg to target afternoon anxiety; monitor response. Monitor to ensure restlessness is not akathisia due to Geodon. 11/04/17 Psych: Will contact DPOA today regarding starting SSRI to target anxiety (likely Lexapro). Plan - 11/05/17 Continued psychiatric care per Dr. Ortega and team. Continue to provide safe and supportive environment. Overall, appears medically stable. Labs on 11/03/17 were stable. Chart reviewed- No current concerns from nursing staff.
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
[2017-11-05 23:11] VITALS: TEMP 97.9
[2017-11-06] MEDS: FAMOTIDINE 20 MG TABLET PO SCH ×2 (04:21→09:04)
[2017-11-06] MEDS: CHOLESTYRAMINE LIGHT 4 G PACKET PO SCH ×2 (04:21→09:04)
[2017-11-06] MEDS: MEMANTINE 10 MG TABLET PO SCH ×2 (04:21→09:04)
[2017-11-06] MEDS: LEVOTHYROXINE 75 MCG TABLET PO SCH (06:34)
[2017-11-06] MEDS: HYDROXYCHLOROQUINE 200 MG TABLET PO SCH (09:03)
[2017-11-06] MEDS: ESCITALOPRAM 10 MG TABLET PO SCH (09:04)
[2017-11-06] MEDS: ZIPRASIDONE 40 MG CAPSULE PO SCH (09:04)
[2017-11-06] MEDS: AMLODIPINE 2.5 MG TABLET PO SCH (09:04)
[2017-11-06 12:23] VITALS: BP 129/77; PULSE 96; RESP 18; O2SAT 96
== END 2017-11-06 14:55 | disposition home or self-care (01) | DRG 884 ==
LOC: ED 11:05 → GEN 12:19
PROVIDERS: ADMIT Psychiatry & Neurology Psychiatry; ATTEND Psychiatry & Neurology Psychiatry